=== PATIENT | male | born 1990 | race Caucasian/White ===

== ENCOUNTER 2019-07-14 21:11 | Inpatient (IN) | payer SELFPAY ==
[2019-07-14] MEDS ORDERED: NORMAL SALINE 1000 ML 1,000 ML IV ONE (22:41)
--- NOTE | 2019-07-14 22:43 | ER Document Report ---
ED Medical Screen (RME) - General Stated Complaint: DIABETEC ULCERS ON FEET,POSSIBLE INFECTION Time Seen by Provider: 07/14/19 22:36 Mode of Arrival: Ambulatory Information source: Patient Notes: Patient presents with diabetic foot wounds to bilateral feet. Patient states that he has not been checking his blood sugar although in triage his blood sugar was 376. Patient has been off his insulin for the past month but has been taking metformin. Patient complains of increased foul-smelling drainage to the foot wounds which prompted his visit tonight. [place]. I have greeted and performed a rapid initial assessment of this patient. A comprehensive ED assessment and evaluation of the patient, analysis of test results and completion of the medical decision making process will be conducted by additional ED providers. - Related Data Allergies/Adverse Reactions: banana Allergy (Verified 07/14/19 22:31) latex Allergy (Verified 07/14/19 22:31) nickel Allergy (Verified 07/14/19 22:31) oritavancin [From Orbactiv] Allergy (Verified 07/14/19 22:31) tomato Allergy (Verified 07/14/19 22:31) Physical Exam - Vital signs Vitals: Temp Pulse Resp BP Pulse Ox 97.7 F 79 20 143/82 H 100 07/14/19 21:34 07/14/19 21:34 07/14/19 21:34 07/14/19 21:34 07/14/19 21:34 - General General appearance: Alert Notes: Patient with diabetic foot wounds to bilateral feet. Patient with previous toe amputations to the right foot. Course - Vital Signs Vital signs: Temp Pulse Resp BP Pulse Ox 97.7 F 79 20 143/82 H 100 07/14/19 21:34 07/14/19 21:34 07/14/19 21:34 07/14/19 21:34 07/14/19 21:34
--- NOTE | 2019-07-14 23:32 | RADIOLOGY REPORT (SQ) ---
EXAM DESCRIPTION: XR FOOT 3 OR MORE VIEWS BILATERAL COMPLETED DATE/TME: 07/14/2019 22:42 CLINICAL HISTORY: 28 years, Male, diabetic foot wounds COMPARISON: None. NUMBER OF VIEWS: Six TECHNIQUE: Frontal, oblique, and lateral radiographs of both feet were obtained LIMITATIONS: None. FINDINGS: Right foot: Visualized are postsurgical changes of amputation of the first, second, and third digits at the level of the metatarsal neck/head. Remaining visualized osseous structures appear normal without acute fracture or dislocation. There is some degree of ill definition about the residua of the third metatarsal head/neck on the oblique radiograph. Left foot: Visualized is focal soft tissue swelling about the fifth digit with associated underlying gas density, especially about the plantar surface, presumably corresponding to a focal soft tissue ulcer. Otherwise, visualized osseous structures appear normal in configuration without acute fracture or dislocation. No periostitis or cortical disruption of bone. IMPRESSION: Right foot: 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 Questionable cortical resorption of bone about the residua of the third metatarsal neck/head, raising the possibility of osteomyelitis. Consider confirmation with three-phase bone scan or MR. Left foot: Focal soft tissue ulceration about the plantar surface of the forefoot at the level of the fifth proximal phalangeal head. No compelling evidence of osteomyelitis. However, if there is continued concern, consider three-phase bone scan or MR. copyright 2011 [employer]- All Rights Reserved
[2019-07-14 23:43] LABS: ABSOLUTE EOSINOPHILS # (AUTO) 0.2 10^3/uL (0.0-0.6); BASOPHILS % (AUTO) 0.5 % (0-2); HEMOGLOBIN 12.4 g/dL (13.5-17.0); TOTAL CELLS COUNTED % (AUTO) 100 %
[2019-07-14 23:49] LABS: ABSOLUTE BASOPHILS # (AUTO) 0.1 10^3/uL (0.0-0.2); ABSOLUTE LYMPHOCYTES (AUTO) 2.6 10^3/uL (0.5-4.7); ABSOLUTE MONOCYTES (AUTO) 0.7 10^3/uL (0.1-1.4); ABSOLUTE NEUT (AUTO) 6.2 10^3/uL (1.7-8.2); EOSINOPHILS % (AUTO) 1.9 % (0-6); LYMPHOCYTES % (AUTO) 26.8 % (13-45); MEAN CORPUSCULAR HEMOGLOBIN 29.5 pg (27.0-33.4); MEAN CORPUSCULAR HGB CONC 34.5 g/dL (32.0-36.0); MEAN CORPUSCULAR VOLUME 86 fl (80-97); MONOCYTES % (AUTO) 7.1 % (3-13); PLATELET COUNT 313 10^3/uL (150-450); RED BLOOD COUNT 4.21 10^6/uL (4.35-5.55); RED CELL DISTRIBUTION WIDTH 12.9 % (11.5-14.0); SEGMENTED NEUTROPHILS % (AUTO) 63.7 % (42-78); WHITE BLOOD COUNT 9.7 10^3/uL (4.0-10.5)
[2019-07-15 00:01] LABS: ALBUMIN 4.3 g/dL (3.5-5.0); ALKALINE PHOSPHATASE 86 U/L (38-126); ANION GAP 13 (5-19); ASPARTATE AMINO TRANSFERASE 18 U/L (17-59); BILIRUBIN,DIRECT 0.3 mg/dL (0.0-0.4); BILIRUBIN,TOTAL 0.3 mg/dL (0.2-1.3); BLOOD UREA NITROGEN 22 mg/dL (7-20); CALCIUM 9.8 mg/dL (8.4-10.2); CARBON DIOXIDE 27 mmol/L (22-30); CHLORIDE 99 mmol/L (98-107); GLUCOSE 337 mg/dL (75-110); POTASSIUM 3.6 mmol/L (3.6-5.0); TOTAL PROTEIN 7.7 g/dL (6.3-8.2)
[2019-07-15] MEDS ORDERED: NORMAL SALINE 1000 ML 1,000 ML IV ONE (02:13)
--- NOTE | 2019-07-15 02:15 | ER Document Report ---
ED General <SANDY GONZALEZ - Last Filed: 07/15/19 06:12> - General Mode of Arrival: Ambulatory TRAVEL OUTSIDE OF THE [place] IN LAST 30 DAYS: No - Related Data Home Medications: Lisinopril. Gabapentin. Humalog. Levemir. Metformin <CHRISTINE COYLE - Last Filed: 07/15/19 06:59> - General Chief Complaint: Wound Infection Stated Complaint: DIABETEC ULCERS ON FEET,POSSIBLE INFECTION Time Seen by Provider: 07/14/19 22:36 Notes: Patient is a 28-year-old male with a history of type 2 diabetes with insulin de pendence that comes emergency department for chief complaint of draining from open sores and ulcers on both of his feet for the past several days. He states he has had open wounds for weeks now. He denies fever, he has neuropathy so he feels little pain, he states the area is starting to look a little bit redder. He is taking his metformin but he is out of his NovoLog and his Levemir which he takes 36 units at night. He states he is new to the area and does not have an established primary care here yet. He denies any other complaints. (CHRISTINE COYLE) - Related Data Allergies/Adverse Reactions: banana Allergy (Verified 07/14/19 22:31) latex Allergy (Verified 07/14/19 22:31) nickel Allergy (Verified 07/14/19 22:31) oritavancin [From Orbactiv] Allergy (Verified 07/14/19 22:31) tomato Allergy (Verified 07/14/19 22:31) Past Medical History - General Information source: Patient - Social History Smoking Status: Never Smoker Frequency of alcohol use: None Drug Abuse: None Lives with: Family Family History: Reviewed & Not Pertinent Patient has suicidal ideation: No Patient has homicidal ideation: No - Past Medical History Cardiac Medical History: Reports: Hx Hypertension Endocrine Medical History: Reports: Hx Diabetes Mellitus Type 2 Past Surgical History: Reports: Hx Orthopedic Surgery - Excision of 3 toes on the right foot <CHRISTINE COYLE - Last Filed: 07/15/19 06:59> Review of Systems - Review of Systems Constitutional: No symptoms reported EENT: No symptoms reported Cardiovascular: No symptoms reported Respiratory: No symptoms reported Gastrointestinal: No symptoms reported Genitourinary: No symptoms reported Male Genitourinary: No symptoms reported Musculoskeletal: See HPI Skin: See HPI Hematologic/Lymphatic: No symptoms reported Neurological/Psychological: No symptoms reported <CHRISTINE COYLE - Last Filed: 07/15/19 06:59> Physical Exam <CHRISTINE COYLE - Last Filed: 07/15/19 06:59> - Vital signs Vitals: Temp Pulse Resp BP Pulse Ox 97.7 F 79 20 143/82 H 100 07/14/19 21:34 07/14/19 21:34 07/14/19 21:34 07/14/19 21:34 07/14/19 21:34 - Notes Notes: GENERAL: Alert, interacts well. No acute distress. HEAD: Normocephalic, atraumatic. EYES: Pupils equal, round, and reactive to light. Extraocular movements intact. ENT: Oral mucosa moist, tongue midline. Oropharynx unremarkable. Airway patent. NECK: Full range of motion. Supple. Trachea midline. LUNGS: Clear to auscultation bilaterally, no wheezes, rales, or rhonchi. No respiratory distress. HEART: Regular rate and rhythm. No murmur ABDOMEN: Soft, non-tender. Non-distended. EXTREMITIES: There are 2 open ulcers with some yellowish drainage over the plantar aspect of the left foot underneath the distal MTP areas. Sensation very decreased in both feet. No overt erythema of the left foot but there is some developing erythema of the right. There are old scars over the top of the right foot, great toe, second toe, third toe missing, wide area of skin loss over the top and plantar area of the right foot as well. Unremarkable lower extremities otherwise. BACK: no cervical, thoracic, lumbar midline tenderness. No saddle anesthesia, normal distal neurovascular exam. Moves all extremities in full range of motion. NEUROLOGICAL: Alert and oriented x3. Normal speech. Cranial nerves II through XII grossly intact. PSYCH: Normal affect, normal mood. SKIN: Warm, dry, normal turgor. No rashes or lesions noted. (CHRISTINE COYLE) Course - Laboratory Result Diagrams: 07/14/19 23:15 07/14/19 23:15 <SANDY GONZALEZ - Last Filed: 07/15/19 06:12> - Laboratory Result Diagrams: 07/14/19 23:15 07/14/19 23:15 <CHRISTINE COYLE - Last Filed: 07/15/19 06:59> - Re-evaluation Re-evalutation: 07/15/19 06:12 The patient was seen and evaluated by me with the midlevel provider. The patient has diabetic wounds on both his feet but the wounds on his left foot probe down rather far. Xrays are concerning for Osteo. Plan for IV antibiotics and admission with surgical consult. (SANDY GONZALEZ) Patient with some developing erythema over the right foot where he is already had 3 toes excised. There is also wide area of tissue loss. Left foot with 2 draining ulcers of the plantar aspect of the foot. No fever, no leukocytosis. Patient is hyperglycemic but not acidotic. Treating with IV fluids and insulin. X-rays were obtained and shows possible osteomyelitis of the right foot. Starting on Zosyn. Discussed with Dr. Gonzalez who will evaluate the patient at bedside. He recommends admission to the hospitalist. Patient states full agreement with this plan. Discussed with Dr. Perea, hospitalist, he accepts patient to medical floor, requests I speak with general surgery. 07/15/19 04:[address] Singletary, general surgery, he requests patient be kept n.p.o. and states he will see the patient. (CHRISTINE COYLE) - Vital Signs Vital signs: Temp Pulse Resp BP Pulse Ox 97.8 F 76 16 132/76 H 100 07/15/19 01:54 07/15/19 01:54 07/15/19 01:54 07/15/19 01:54 07/15/19 01:54 - Laboratory Laboratory results interpreted by me: 07/14/19 07/14/19 07/14/19 22:40 23:15 23:15 RBC 4.21 L Hgb 12.4 L Hct 36.0 L ESR BUN 22 H Glucose 337 H POC Glucose 376 H Hemoglobin A1c % C-Reactive Protein 07/14/19 07/14/19 07/15/19 23:15 23:15 02:29 RBC Hgb Hct ESR BUN Glucose POC Glucose 311 H Hemoglobin A1c % 9.8 H C-Reactive Protein 32.8 H 07/15/19 07/15/19 04:04 04:22 RBC Hgb Hct ESR 56 H BUN Glucose POC Glucose 266 H Hemoglobin A1c % C-Reactive Protein Discharge <SANDY GONZALEZ - Last Filed: 07/15/19 06:12> - Discharge Admitting Provider: Eliazar (Hospitalist) Unit Admitted: Medical Floor <CHRISTINE COYLE - Last Filed: 07/15/19 06:59> - Discharge Clinical Impression: Diabetic foot ulcer Qualifiers: Diabetic foot ulcer location: unspecified part of foot Diabetes mellitus type: type 2 Laterality: unspecified laterality Non-pressure ulcer stage: unspecified non-pressure ulcer stage Qualified Code(s): E11.621 - Type 2 diabetes mellitus with foot ulcer Osteomyelitis Qualifiers: Osteomyelitis type: unspecified type Osteomyelitis location: foot Laterality: right Qualified Code(s): M86.9 - Osteomyelitis, unspecified Uncontrolled diabetes mellitus Qualifiers: Diabetes mellitus type: type 2 Glycemic state: with hyperglycemia Qualified Code(s): E11.65 - Type 2 diabetes mellitus with hyperglycemia Condition: Stable Disposition: ADMITTED INPATIENT
[2019-07-15] MEDS ORDERED: INSULIN REG, HUMAN 100 UNIT/ML 3 ML VIAL (PYX) SUBCUT ONE (02:46)
[2019-07-15] MEDS ORDERED: PIPERACILLIN/TAZOBACTAM 4.5 GM VIAL IV ONE (04:17)
[2019-07-15] MEDS ORDERED: GLUCAGON,HUMAN RECOMB 1 MG INJ IM PRN ×2 (04:19→16:30)
[2019-07-15] MEDS ORDERED: IPRATROPIUM/ALBUTEROL 0.5-2.5 MG/3 ML AMPUL NEB PRN (04:19)
[2019-07-15] MEDS ORDERED: DEXTROSE 40% GEL 15 GM TUBE PO PRN ×3 (04:19→16:30)
[2019-07-15] MEDS ORDERED: ACETAMINOPHEN 325 MG TABLET PO PRN (04:19)
[2019-07-15] MEDS ORDERED: MAGNESIUM HYDROXIDE SUSP 30 ML UDCUP PO PRN (04:19)
[2019-07-15] MEDS ORDERED: DEXTROSE 50%-WATER 25 GM/50 ML DISP.SYRIN IV PRN ×2 (04:19)
[2019-07-15] MEDS ORDERED: MAG HYDROX/AL HYDROX/SIMETH SUSP 30 ML UDCUP PO PRN (04:19)
[2019-07-15] MEDS ORDERED: KETOROLAC TROMETHAMINE INJ/PF 30 MG/1 ML SDV IV PRN (04:25)
[2019-07-15] MEDS ORDERED: VANCOMYCIN HCL 0 MG in DEXTROSE 5%-WATER 250 ML IV NR (04:30)
[2019-07-15] MEDS ORDERED: NORMAL SALINE 1000 ML 1,000 ML IV PRN (04:30)
[2019-07-15] MEDS ORDERED: INSULIN GLARGINE,HUM.REC.ANLOG 1,000 UNIT/10 ML VIAL SUBCUT ONE (05:00)
[2019-07-15] MEDS ORDERED: VANCOMYCIN HCL INJ 1000 MG VIAL IV PRN (05:17)
[2019-07-15] MEDS ORDERED: VANCOMYCIN HCL 2,000 MG in DEXTROSE 5%-WATER 500 ML IV ONE (05:30)
[2019-07-15] MEDS: INSULIN LISPRO 100 UNIT/ML 3 ML VIAL SUBCUT SCH ×3 (05:34→21:54)
--- NOTE | 2019-07-15 05:38 | PDOC CONSULTATION ---
Consultation Consult Date: 07/15/19 Provider Consulted: TEX AVILA Consult reason:: Diabetic foot ulcers History of Present Illness Admission Date/PCP: 07/15/19 04:53 History of Present Illness: CONI WAGGONER is a 28 year old male with type 2 diabetes insulin-dependent complaining of foul-smelling drainage from the left foot ulcers in the past week. He denies any fever but claims has occasional chills. He had amputation of the right big toe about 2 years ago in [place] followed by amputation of the right second and third toes about a year ago. He claims that he was in the [facility] about 6[facility] to heal the amputation on the right first toe. He developed callus with ulceration on the left plantar area opposite the first metatarsal head about 3 months ago and started draining and worst in the past week with foul-smelling discharge. The left fifth metatarsal head ulcer started about a month ago and also started to drain recently. He has decreased sensation to both feet due to diabetic neuropathy. Past Medical History Endocrine Medical History: Reports: Diabetes Mellitus Type 2 Past Surgical History Past Surgical History: Reports: Orthopedic Surgery - Amputation of the right first second and third toes. Social History Smoking Status: Never Smoker Frequency of Alcohol Use: Rare - Advance Directive Resuscitation Status: Full Code Family History Parental Family History Reviewed: Yes - Mother has diabetes Children Family History Reviewed: No Sibling(s) Family History Reviewed.: No Medication/Allergy Allergies/Adverse Reactions: banana Allergy (Verified 07/14/19 22:31) latex Allergy (Verified 07/14/19 22:31) nickel Allergy (Verified 07/14/19 22:31) oritavancin [From Orbactiv] Allergy (Verified 07/14/19 22:31) tomato Allergy (Verified 07/14/19 22:31) Review of Systems Constitutional: PRESENT: as per HPI Gastrointestinal: PRESENT: diarrhea - Occasional and usually at night, nausea - Occasional Musculoskeletal: PRESENT: other - Occasional phantom pains on the right toes Decreased sensation in both feet Integumentary: PRESENT: wounds - To plantar arch ulcers on the left foot Neurological: PRESENT: paresthesias - Both feet due to diabetes Physical Exam Vital Signs: Temp Pulse Resp BP Pulse Ox 97.8 F 76 16 132/76 H 100 07/15/19 01:54 07/15/19 01:54 07/15/19 01:54 07/15/19 01:54 07/15/19 01:54 Intake & Output 07/13/19 07/14/19 07/15/19 06:59 06:59 06:59 Intake Total 1000 Balance 1000 Weight 98.2 kg General appearance: PRESENT: no acute distress Head exam: PRESENT: atraumatic Mouth exam: PRESENT: moist Neck exam: PRESENT: full ROM Respiratory exam: PRESENT: clear to auscultation jonathan Cardiovascular exam: PRESENT: RRR Pulses: PRESENT: normal radial pulses, normal dorsalis pedis pul - Palpable on the right ankle. Palpable but diminished on the left. Unable to palpate bilateral posterior tibial arteries likely due to mild edema and mild discomfort Vascular exam: PRESENT: normal capillary refill GI/Abdominal exam: PRESENT: soft Rectal exam: PRESENT: deferred Extremities exam: PRESENT: other - Right first second and third toes amputated. There is superficial ulceration along the right big toe amputation stump. There is mild erythema along the right for second toe amputation site. There is mild tenderness along the right Achilles tendon area going up into the mid calf. There is callus with ulceration along the left first metatarsal head area. No gross drainage at this time the patient claimed this is been draining more in the past few days with foul-smelling. There is a smaller callus with ulceration along the left fifth toe metatarsal bone area. No gross tenderness along both feet due to patient's diabetic neuropathy Musculoskeletal exam: PRESENT: ambulatory Neurological exam: PRESENT: alert, oriented to person, oriented to place, oriented to time, oriented to situation Psychiatric exam: PRESENT: appropriate affect Skin exam: PRESENT: normal color, warm Results Laboratory Results: 07/14/19 23:15 07/14/19 23:15 07/14/19 07/14/19 07/14/19 23:15 23:15 23:15 WBC 9.7 RBC 4.21 L Hgb 12.4 L Hct 36.0 L MCV 86 MCH 29.5 MCHC 34.5 RDW 12.9 Plt Count 313 Seg Neutrophils % 63.7 Sodium 139.2 Potassium 3.6 Chloride 99 Carbon Dioxide 27 Anion Gap 13 BUN 22 H Creatinine 1.04 Est GFR ( Amer) > 60 Glucose 337 H Calcium 9.8 Total Bilirubin 0.3 AST 18 Alkaline Phosphatase 86 C-Reactive Protein 32.8 H Total Protein 7.7 Albumin 4.3 Impressions: Foot X-Ray 07/14/19 22:42 IMPRESSION: Right foot: 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 Questionable cortical resorption of bone about the residua of the third metatarsal neck/head, raising the possibility of osteomyelitis. Consider confirmation with three-phase bone scan or MR. Left foot: Focal soft tissue ulceration about the plantar surface of the forefoot at the level of the fifth proximal phalangeal head. No compelling evidence of osteomyelitis. However, if there is continued concern, consider three-phase bone scan or MR. copyright 2011 [employer]- All Rights Reserved Assessment & Plan - Diagnosis (1) Cellulitis of both feet Is this a current diagnosis for this admission?: Yes (2) Diabetic ulcer of left foot Is this a current diagnosis for this admission?: Yes (3) Uncontrolled diabetes mellitus Qualifiers: Diabetes mellitus type: type 2 Glycemic state: with hyperglycemia Qualified Code(s): E11.65 - Type 2 diabetes mellitus with hyperglycemia Is this a current diagnosis for this admission?: Yes - Time Time Spent: 30 to 50 Minutes - Inpatient Certification Medical Necessity: Need for IV Antibiotics, Risk of Complication if Not Cared For in Hospital - Plan Summary Plan Summary: 28-year-old male with insulin-dependent diabetes post amputation right first second and third toes, now with ulceration along the left first and fifth metatarsal head areas with foul-smelling drainage, comes to the ED because of increasing drainage from the left foot. He claims he ran out of [facility] about a month ago but still has been taking metformin. His initial blood sugar was 367. X-rays of the right foot showed possible osteomyelitis of the right third metatarsal head and possible osteo-of the left fifth metatarsal head and MRI of both feet was recommended by the radiologist. Patient denies any fever but claims is occasional chills. Impression is cellulitis of both feet with possible osteomyelitis of the right third metatarsal head and the left fifth metatarsal head areas. Recommendations: 1 start IV antibiotics 2 MRI of both feet 3 we will follow patient with medicine
--- NOTE | 2019-07-15 06:41 | PDOC H&P ---
History of Present Illness Admission Date/PCP: 07/15/19 04:53 Patient complains of: Right foot ulcer with discharge History of Present Illness: CONI WAGGONER is a 28 year old male with a past medical history of hypertension, diabetes, foot ulcer, digits 1 2 and 3 amputations with osteomyelitis of the right foot. He presents with malodorous discharge without pain and two more large plantar surface ulcers about the metatarsal heads of the left foot. He denies fever chills nausea or vomiting. He admits to dietary, lifestyle and medication indiscretion. He is referred to the hospitalist for admission. Past Medical History Endocrine Medical History: Reports: Diabetes Mellitus Type 1, Diabetes Mellitus Type 2 Musculoskeltal Medical History: Reports: Other - Right foot osteomyelitis Past Surgical History Past Surgical History: Reports: Orthopedic Surgery - Amputation of the right first second and third toes. Social History Information Source: Patient Lives with: Alone Smoking Status: Never Smoker Frequency of Alcohol Use: Rare Drugs: None - Advance Directive Resuscitation Status: Full Code Family History Family History: Hypertension Parental Family History Reviewed: Yes Children Family History Reviewed: Yes Sibling(s) Family History Reviewed.: Yes Medication/Allergy Allergies/Adverse Reactions: banana Allergy (Verified 07/14/19 22:31) latex Allergy (Verified 07/14/19 22:31) nickel Allergy (Verified 07/14/19 22:31) oritavancin [From Orbactiv] Allergy (Verified 07/14/19 22:31) tomato Allergy (Verified 07/14/19 22:31) Review of Systems Constitutional: PRESENT: as per HPI, fatigue, weight loss Integumentary: PRESENT: as per HPI, lesions, wounds Endocrine: PRESENT: polydipsia, polyuria Physical Exam Vital Signs: Temp Pulse Resp BP Pulse Ox 97.8 F 76 16 132/76 H 100 07/15/19 01:54 07/15/19 01:54 07/15/19 01:54 07/15/19 01:54 07/15/19 01:54 Intake & Output 07/13/19 07/14/19 07/15/19 11:59 11:59 11:59 Intake Total 1000 Balance 1000 Weight 98.2 kg General appearance: PRESENT: cooperative, disheveled, mild distress, well- developed, well-nourished Head exam: PRESENT: atraumatic, normocephalic Eye exam: PRESENT: conjunctiva pink, EOMI, PERRLA. ABSENT: scleral icterus Ear exam: PRESENT: normal external ear exam Mouth exam: PRESENT: moist, tongue midline Neck exam: ABSENT: carotid bruit, JVD, lymphadenopathy, thyromegaly Respiratory exam: PRESENT: clear to auscultation jonathan. ABSENT: rales, rhonchi, wheezes Cardiovascular exam: PRESENT: RRR. ABSENT: diastolic murmur, rubs, systolic murmur Pulses: PRESENT: normal dorsalis pedis pul Vascular exam: PRESENT: normal capillary refill GI/Abdominal exam: PRESENT: normal bowel sounds, soft. ABSENT: distended, guarding, mass, organolmegaly, rebound, tenderness Rectal exam: PRESENT: deferred Extremities exam: PRESENT: joint swelling, +1 edema Skin exam: PRESENT: erythema, other - Right distal foot erythema amputation site ulcer with necrotic discharge. Left foot 1 x 1 cm ulcers to the metatarsal heads digit 1 and 3. ABSENT: intact Results Laboratory Results: 07/14/19 23:15 07/14/19 23:15 07/14/19 07/14/19 07/14/19 23:15 23:15 23:15 WBC 9.7 RBC 4.21 L Hgb 12.4 L Hct 36.0 L MCV 86 MCH 29.5 MCHC 34.5 RDW 12.9 Plt Count 313 Seg Neutrophils % 63.7 Sodium 139.2 Potassium 3.6 Chloride 99 Carbon Dioxide 27 Anion Gap 13 BUN 22 H Creatinine 1.04 Est GFR ( Amer) > 60 Glucose 337 H Calcium 9.8 Total Bilirubin 0.3 AST 18 Alkaline Phosphatase 86 C-Reactive Protein 32.8 H Total Protein 7.7 Albumin 4.3 Impressions: Foot X-Ray 07/14/19 22:42 IMPRESSION: Right foot: 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 Questionable cortical resorption of bone about the residua of the third metatarsal neck/head, raising the possibility of osteomyelitis. Consider confirmation with three-phase bone scan or MR. Left foot: Focal soft tissue ulceration about the plantar surface of the forefoot at the level of the fifth proximal phalangeal head. No compelling evidence of osteomyelitis. However, if there is continued concern, consider three-phase bone scan or MR. copyright 2011 [employer]- All Rights Reserved Assessment and Plan - Diagnosis (1) Cellulitis of both feet Is this a current diagnosis for this admission?: Yes Plan: Zosyn and vancomycin, follow-up CBC, wound and blood culture (2) Diabetic foot ulcer Qualifiers: Diabetic foot ulcer location: unspecified part of foot Diabetes mellitus type: type 2 Laterality: unspecified laterality Non-pressure ulcer stage: unspecified non-pressure ulcer stage Qualified Code(s): E11.621 - Type 2 diabetes mellitus with foot ulcer; L97.509 - Non-pressure chronic ulcer of other part of unspecified foot with unspecified severity Is this a current diagnosis for this admission?: Yes Plan: Follow-up MRI and surgical consult (3) Osteomyelitis Qualifiers: Osteomyelitis type: unspecified type Osteomyelitis location: foot Laterality: right Qualified Code(s): M86.9 - Osteomyelitis, unspecified Is this a current diagnosis for this admission?: Yes Plan: Vancomycin, Zosyn, follow-up MRI and surgical consult (4) Uncontrolled diabetes mellitus Qualifiers: Diabetes mellitus type: type 2 Glycemic state: with hyperglycemia Qualified Code(s): E11.65 - Type 2 diabetes mellitus with hyperglycemia Is this a current diagnosis for this admission?: Yes Plan: Unclear requirement, Lantus 5 nightly and Humalog sliding scale q. before meals. Follow-up A1c and Accu-Cheks - Time Time Spent with patient: 25-34 minutes - Inpatient Certification Medical Necessity: Need Close Monitoring Due to Risk of Patient Decompensation
[2019-07-15 07:16] LABS: URINE AMPHETAMINES SCREEN NEGATIVE; URINE BARBITURATES SCREEN NEGATIVE; URINE BENZODIAZEPINES SCREEN NEGATIVE; URINE COCAINE SCREEN NEGATIVE; URINE MARIJUANA (THC) SCREEN NEGATIVE; URINE METHADONE SCREEN NEGATIVE; URINE PHENCYCLIDINE SCREEN NEGATIVE
[2019-07-15] MEDS: HEPARIN SOD (PORCINE) 5,000 UNIT/ML 1 ML VIAL SUBCUT SCH ×3 (11:35→21:40)
--- NOTE | 2019-07-15 12:45 | RADIOLOGY REPORT (SQ) ---
EXAM DESCRIPTION: MRI RT LOWER EXTREMITY COMBO COMPLETED DATE/TIME: 07/15/2019 10:46 am REASON FOR STUDY: RIGHT AND LEFT diabetic foot c osteo COMPARISON: Bilateral foot films 07/14/2019 TECHNIQUE: Multiplanar imaging of the right foot to include T1-weighted, postcontrast T1-weighted, a nd T2-weighted images. CONTRAST TYPE AND DOSE: 20 mL Prohance. RENAL FUNCTION: Not indicated. ACR Type II contrast agent associated with few, if any, unconfounded cases of NSF LIMITATIONS: None. FINDINGS: Patient is post amputation of the 1st through 3rd toes at the metatarsophalangeal joint re gion. Although there is bony remodeling along the distal right 1st 2nd and 3rd metatarsals with periosteal new bone formation, there is no abnormal contrast enhancement or marrow signal worrisome for osteomye litis. There is an enhancing 10 mm diameter plantar fibroma on coronal image 8 and sagittal image 9. Along the flexor digitorum profunda tendon 3rd toe, a 1 cm enhancing neuroma is present on coronal im age 1220. There is minimal soft tissue edema along the plantar aspect of the 1st metatarsal head without contra st enhancement worrisome for infection. No abscess. IMPRESSION: NO EVIDENCE FOR OSTEOMYELITIS. TECHNICAL DOCUMENTATION: JOB ID: [id number] [employer]- All Rights Reserved Reading location - IP/workstation name: [email or web address]
--- NOTE | 2019-07-15 12:50 | RADIOLOGY REPORT (SQ) ---
EXAM DESCRIPTION: MRI LT LOWER EXTREMITY COMBO COMPLETED DATE/TIME: 07/15/2019 10:46 am REASON FOR STUDY: LEFT DIABETIC FOOT COSTEO COMPARISON: Bilateral foot films 07/14/2019 TECHNIQUE: Multiplanar imaging of the left foot to include T1-weighted, postcontrast T1-weighted, an d T2-weighted images. CONTRAST TYPE AND DOSE: 20 mL Prohance. RENAL FUNCTION: Not indicated. ACR Type II contrast agent associated with few, if any, unconfounded cases of NSF LIMITATIONS: None. FINDINGS: BONE MARROW: No marrow signal alteration. Specifically no marrow replacement or marrow ed riley. No evidence for osteomyelitis. No cortical break through. SOFT TISSUES: There is diffuse forefoot subcutaneous and deep tissue edema and enhancement from cellu litis. Enhancement of the interosseous muscles is present from myositis. Small joint effusion at th e 1st metatarsophalangeal joint. OTHER: No other significant finding. IMPRESSION: NO EVIDENCE FOR OSTEOMYELITIS. Diffuse forefoot cellulitis TECHNICAL DOCUMENTATION: JOB ID: [id number] [employer]- All Rights Reserved Reading location - IP/workstation name: [email or web address]
--- NOTE | 2019-07-15 13:05 | PDOC PROGRESS REPORT ---
Subjective Progress Note for:: 07/15/19 Subjective:: Patient still in the emergency department, remains n.p.o. Had MRI scan of legs; no radiologic report available Reason For Visit: DM FOOT C OSTEO Physical Exam Vital Signs: Temp Pulse Resp BP Pulse Ox 97.7 F 76 8 L 133/90 H 97 07/15/19 08:09 07/15/19 01:54 07/15/19 12:01 07/15/19 12:00 07/15/19 12:01 Intake & Output 07/14/19 07/15/19 07/16/19 06:59 06:59 06:59 Intake Total 1000 Balance 1000 Weight 98.2 kg General appearance: PRESENT: no acute distress Musculoskeletal exam: PRESENT: other - Right foot examined. Toes 1 2 and 3 surgically absent. Scar appreciated dorsum of the foot running vertically. There is eschar approximately 3 x 4 cm over the plantar surface over the previous mutation closure site. There is some purulent drainage expressed through the eschar. There is surrounding erythema and tenderness. Left foot examined. There are classic mal perforans ulcers left first and left fifth metatarsal head area with erythema, tenderness, overlying bulla. Results Laboratory Results: 07/14/19 23:15 07/14/19 23:15 07/14/19 07/14/19 07/14/19 23:15 23:15 23:15 WBC 9.7 RBC 4.21 L Hgb 12.4 L Hct 36.0 L MCV 86 MCH 29.5 MCHC 34.5 RDW 12.9 Plt Count 313 Seg Neutrophils % 63.7 Sodium 139.2 Potassium 3.6 Chloride 99 Carbon Dioxide 27 Anion Gap 13 BUN 22 H Creatinine 1.04 Est GFR ( Amer) > 60 Glucose 337 H Calcium 9.8 Total Bilirubin 0.3 AST 18 Alkaline Phosphatase 86 C-Reactive Protein 32.8 H Total Protein 7.7 Albumin 4.3 Impressions: Foot X-Ray 07/14/19 22:42 IMPRESSION: Right foot: 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 Questionable cortical resorption of bone about the residua of the third metatarsal neck/head, raising the possibility of osteomyelitis. Consider confirmation with three-phase bone scan or MR. Left foot: Focal soft tissue ulceration about the plantar surface of the forefoot at the level of the fifth proximal phalangeal head. No compelling evidence of osteomyelitis. However, if there is continued concern, consider three-phase bone scan or MR. copyright 2011 [employer]- All Rights Reserved Lower Extremity MRI 07/15/19 00:00 IMPRESSION: NO EVIDENCE FOR OSTEOMYELITIS. Diffuse forefoot cellulitis Assessment & Plan - Diagnosis (1) Diabetic foot ulcer Qualifiers: Diabetic foot ulcer location: other Diabetes mellitus type: type 2 Laterality: unspecified laterality Non-pressure ulcer stage: unspecified non- pressure ulcer stage Qualified Code(s): E11.621 - Type 2 diabetes mellitus with foot ulcer; L97.509 - Non-pressure chronic ulcer of other part of unspecified foot with unspecified severity Is this a current diagnosis for this admission?: Yes Plan: Impression: 28-year-old diabetic male, status post right first second and third ray amputations in [place] last year, now with pressure ulceration, eschar in pus at the operative closure site; new left foot mal perforans ulcers with purulent discharge first and fifth metatarsal head areas. Also noted inability to palpate dorsalis pedis and posterior tibial pulses consistent with peripheral vascular disease. Recommendations: 1. Debride both feet in the operating room under LMAC, today, 30 minutes, main OR; patient remains n.p.o. Will obtain intraoperative wound cultures and alter antimicrobial coverage accordingly. 2. Patient will need vascular evaluation, starting with an arterial duplex study. - Time Time Spent with patient: 15-24 minutes Medications reviewed and adjusted accordingly: Yes Anticipated discharge: Home
[2019-07-15] MEDS: PIPERACILLIN SODIUM/TAZOBACTAM 4.5 GM in NORMAL SALINE 100 ML IV SCH ×2 (13:08→19:03)
[2019-07-15] MEDS ORDERED: BUPIVACAINE HCL 0.25 % INJ/PF (2.5 MG/1 ML) 30 ML VIAL ONE (13:10)
[2019-07-15] MEDS ORDERED: LIDOCAINE 0.5% INJ-PF (5 MG/ML) 50 ML SDV ONE (13:11)
[2019-07-15] MEDS ORDERED: FENTANYL CITRATE INJ/PF 100 MCG/2 ML AMPUL ONE (13:33)
[2019-07-15] MEDS ORDERED: KETAMINE HCL INJ 500 MG/10 ML VIAL ONE (13:33)
[2019-07-15] MEDS ORDERED: MIDAZOLAM 2 MG/2 ML INJ ONE (13:34)
[2019-07-15] MEDS ORDERED: PROPOFOL INJ 200 MG/20 ML VIAL IV ONE (13:34)
[2019-07-15] MEDS ORDERED: MEPERIDINE HCL/PF INJ 25 MG/1 ML DISP.SYRIN IV PRN (14:05)
[2019-07-15] MEDS ORDERED: FENTANYL CITRATE INJ/PF 100 MCG/2 ML AMPUL IV PRN ×3 (14:05)
[2019-07-15] MEDS ORDERED: MORPHINE SULFATE 10 MG/ML INJ IV PRN (14:05)
[2019-07-15] MEDS ORDERED: DIPHENHYDRAMINE HCL 50 MG/ML VIAL IV PRN (14:05)
[2019-07-15] MEDS ORDERED: PROMETHAZINE HCL INJ 25 MG/1 ML VIAL IV PRN (14:05)
--- NOTE | 2019-07-15 14:49 | Operative Report ---
Operative Report DATE OF SURGERY: 07/15/19 PREOPERATIVE DIAGNOSIS: 1. Type 2 diabetes mellitus with diabetic neuropathy. 2. Post right first second and third toe amputations. 3. Right foot plantar surface soft tissue eschar and cellulitis. 4. Diabetic foot ulcers of the left first and fifth metatarsal head area (mal perforans) POSTOPERATIVE DIAGNOSIS: Same with no evidence of tendon or bone involvement OPERATION: 1. Excisional debridement of right foot plantar surface eschar, swab for culture and sensitivity. 2. Excisional debridement of skin and subcutaneous tissue and fascia of the left foot, first and fifth metatarsal head ulcers. 3. Excisional debridement of 5 toenails SURGEON: MILAN WHITFIELD ANESTHESIA: LMAC TISSUE REMOVED OR ALTERED: Nonviable skin, subcutaneous tissue and fascia COMPLICATIONS: None ESTIMATED BLOOD LOSS: 30 cc INTRAOPERATIVE FINDINGS: See below PROCEDURE: Patient was taken the main operating room where LMAC anesthesia was induced. Both feet were exposed, prepped and draped sterile fashion. Surgical plan surgical timeout were conducted. The right foot was examined first. The findings were significant for an eschar approximately 3 x 4-1/2 cm on the plantar surface of the right foot at the site of the previous right first through 3 toe amputations. The skin and subcutaneous tissue was anesthetized with 1% plain lidocaine. Scar was debrided which included skin and hyperkeratotic tissue. The underlying deep soft tissue had no obvious evidence of pus, drainage or foul smell. There was a piece of Prolene suture which was removed. Wound culture obtained. No further debridement required. Foot was washed, then dressed with Xeroform and 4 x 4's and Kerlix. The left foot was examined. Findings were significant for classic mal perforans ulcers of the first and fifth metatarsal heads. These areas were anesthetized 1% plain lidocaine. The first metatarsal head was excised all the way down to the deep fascia. The plug of skin and subcutaneous tissue was sent to pathology. Wound cultures obtained for Gram stain, C&S. Curette was used to remove all elements of the nonviable tissue. There was no tracking into the joint. The hole created was approximately 2 cm x 2 cm in diameter by 2 cm in depth. It was irrigated with saline, bleeders cauterized which were brisk. The identical procedure was performed over the left fifth metatarsal head. Hyperkeratotic skin, eschar subcutaneous tissue all excised with a #10 blade to create a hole approximately 1-1/2 cm x 1 1/2 cm x 1 1/2 cm in diameter. There was no tracking into the joint. Wound was irrigated with 1/2 L of saline, bleeders cauterized and wound packed with Xeroform, gauze 4 x 4 then foot wrapped with Kerlix Clinical impression: Neglected, diabetic foot ulcers involving right forefoot at previous amputation site, and left first and fifth metatarsal heads. No clinical or MRI evidence of osteomyelitis. Recommendations: 1. Leg elevation, dressing changes, follow-up on cultures and alter antibiotic pending sensitivities. 2. Doubt patient will require additional operative debridement 3. Patient will need very close follow-up with advanced wound center, and podiatry. 4. The above discussed with patient's family; of note patient's mother has had diabetes for 35 years.
[2019-07-15] MEDS: VANCOMYCIN HCL 1,250 MG in DEXTROSE 5%-WATER 250 ML IV SCH ×2 (16:03→21:53)
[2019-07-15] MEDS ORDERED: INFLUENZA QUAD (6MOS+) 2019-20 VAC 0.5 ML SYR IM ONE (16:12)
[2019-07-15] MEDS ORDERED: DEXTROSE 40% GEL 15 GM TUBE X 2 PO PRN (16:30)
[2019-07-15] MEDS ORDERED: DEXTROSE 50%-WATER SYRINGE 12.5 GM/25 ML DOSE IV PRN (16:30)
[2019-07-15] MEDS ORDERED: DEXTROSE 50%-WATER SYRINGE 25 GM/50 ML DOSE IV PRN (16:30)
[2019-07-15] MEDS ORDERED: INSULIN LISPRO 100 UNIT/ML 3 ML VIAL SUBCUT ONE (17:00)
--- NOTE | 2019-07-15 17:30 | PDOC PROGRESS REPORT ---
Subjective Progress Note for:: 07/15/19 Subjective:: The patient is a 24-year-old male with a past medical history of hypertension, diabetes, foot ulcers, and multiple toe amputations of the right foot who was admitted 07/15/2019 with bilateral diabetic foot wounds. Patient was seen on afternoon rounds. He is found resting in bed comfortably on supplemental oxygen by nasal cannula. He is not home O2 dependent. He is just returned to the room from the OR where he underwent surgical debridement of bilateral feet. He reports that he is feeling well at this time; just drowsy. He denies fever, chills, chest pain, palpitations, dyspnea, orthopnea, abdominal pain, nausea vomiting and diarrhea. No pain to feet at this time. He has no other questions or concerns. No concerns per nursing. Reason For Visit: DM FOOT C OSTEO Physical Exam Vital Signs: Temp Pulse Resp BP Pulse Ox 97.9 F 71 16 132/85 H 99 07/15/19 16:45 07/15/19 16:45 07/15/19 16:45 07/15/19 16:45 07/15/19 16:45 Intake & Output 07/14/19 07/15/19 07/16/19 06:59 06:59 06:59 Intake Total 1000 1000 Output Total 5 Balance 1000 995 Weight 98.2 kg 100.7 kg General appearance: PRESENT: no acute distress, disheveled, well-developed, well-nourished Head exam: PRESENT: atraumatic, normocephalic Eye exam: PRESENT: conjunctiva pink, EOMI, PERRLA. ABSENT: scleral icterus Ear exam: PRESENT: normal external ear exam Mouth exam: PRESENT: moist, tongue midline Neck exam: ABSENT: carotid bruit, JVD, lymphadenopathy, thyromegaly Respiratory exam: PRESENT: clear to auscultation jonathan, symmetrical, unlabored. ABSENT: rales, rhonchi, wheezes Cardiovascular exam: PRESENT: RRR, +S1, +S2. ABSENT: diastolic murmur, rubs, systolic murmur Pulses: PRESENT: normal dorsalis pedis pul Vascular exam: PRESENT: normal capillary refill GI/Abdominal exam: PRESENT: normal bowel sounds, soft. ABSENT: distended, guarding, mass, organolmegaly, rebound, tenderness Rectal exam: PRESENT: deferred Extremities exam: PRESENT: full ROM. ABSENT: calf tenderness, clubbing, pedal edema Neurological exam: PRESENT: alert, awake, oriented to person, oriented to place, oriented to time, oriented to situation, CN II-XII grossly intact. ABSENT: motor sensory deficit Psychiatric exam: PRESENT: appropriate affect, normal mood. ABSENT: homicidal ideation, suicidal ideation Skin exam: PRESENT: dry, warm, other - Bilateral feet w/ post-op dressings in place.. ABSENT: cyanosis, intact, rash Results Laboratory Results: 07/14/19 23:15 07/14/19 23:15 07/14/19 07/14/19 07/14/19 23:15 23:15 23:15 WBC 9.7 RBC 4.21 L Hgb 12.4 L Hct 36.0 L MCV 86 MCH 29.5 MCHC 34.5 RDW 12.9 Plt Count 313 Seg Neutrophils % 63.7 Sodium 139.2 Potassium 3.6 Chloride 99 Carbon Dioxide 27 Anion Gap 13 BUN 22 H Creatinine 1.04 Est GFR ( Amer) > 60 Glucose 337 H Calcium 9.8 Total Bilirubin 0.3 AST 18 Alkaline Phosphatase 86 C-Reactive Protein 32.8 H Total Protein 7.7 Albumin 4.3 Impressions: Foot X-Ray 07/14/19 22:42 IMPRESSION: Right foot: 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 Questionable cortical resorption of bone about the residua of the third metatarsal neck/head, raising the possibility of osteomyelitis. Consider confirmation with three-phase bone scan or MR. Left foot: Focal soft tissue ulceration about the plantar surface of the forefoot at the level of the fifth proximal phalangeal head. No compelling evidence of osteomyelitis. However, if there is continued concern, consider three-phase bone scan or MR. copyright 2011 [employer]- All Rights Reserved Lower Extremity MRI 07/15/19 00:00 IMPRESSION: NO EVIDENCE FOR OSTEOMYELITIS. Diffuse forefoot cellulitis Assessment and Plan - Diagnosis (1) Cellulitis of both feet Is this a current diagnosis for this admission?: Yes Plan: MRIs were negative for osteomyelitis. Blood and wound cultures are pending. Sed rate 56, CRP 32 Patient is admitted to the medical floor. Continue empiric Zosyn and vancomycin Surgery is consulted; now status post surgical debridement of both feet. Wound care per surgery's recommendations. Follow-up with the advanced wound care clinic as an outpatient. Analgesics as needed. (2) Diabetic foot ulcer Qualifiers: Diabetic foot ulcer location: other Diabetes mellitus type: type 2 Laterality: unspecified laterality Non-pressure ulcer stage: unspecified non- pressure ulcer stage Qualified Code(s): E11.621 - Type 2 diabetes mellitus with foot ulcer; L97.509 - Non-pressure chronic ulcer of other part of unspecified foot with unspecified severity Is this a current diagnosis for this admission?: Yes Plan: Evaluation and management as above. (3) Uncontrolled diabetes mellitus Qualifiers: Diabetes mellitus type: type 2 Glycemic state: with hyperglycemia Qualified Code(s): E11.65 - Type 2 diabetes mellitus with hyperglycemia Is this a current diagnosis for this admission?: Yes Plan: Hemoglobin A1c 9.8. Patient is placed on a consistent carb diet. Accu-Cheks before meals and at bedtime with Humalog for sliding scale coverage. Lantus 5 units nightly. Hypoglycemia protocol. Registered dietitian and coding educator consulted. (4) Osteomyelitis Qualifiers: Osteomyelitis type: unspecified type Osteomyelitis location: foot Laterality: right Qualified Code(s): M86.9 - Osteomyelitis, unspecified Is this a current diagnosis for this admission?: Yes Plan: Ruled out. MRIs were negative for osteomyelitis. No evidence of tendon or bone involvement noted per Dr. Conroy during surgical debridement - Time Time Spent with patient: 15-24 minutes Medications reviewed and adjusted accordingly: Yes Anticipated discharge: Home with Homehealth
[2019-07-15] MEDS ORDERED: INSULIN GLARGINE,HUM.REC.ANLOG 1,000 UNIT/10 ML VIAL SUBCUT SCH (22:00)
[2019-07-16] MEDS: PIPERACILLIN SODIUM/TAZOBACTAM 4.5 GM in NORMAL SALINE 100 ML IV SCH ×4 (00:23→17:01)
[2019-07-16] MEDS: HEPARIN SOD (PORCINE) 5,000 UNIT/ML 1 ML VIAL SUBCUT SCH ×3 (05:42→21:51)
[2019-07-16] MEDS: VANCOMYCIN HCL 1,250 MG in DEXTROSE 5%-WATER 250 ML IV SCH ×3 (05:49→21:56)
[2019-07-16 06:10] LABS: ABSOLUTE EOSINOPHILS # (AUTO) 0.2 10^3/uL (0.0-0.6); ABSOLUTE LYMPHOCYTES (AUTO) 1.8 10^3/uL (0.5-4.7); ABSOLUTE MONOCYTES (AUTO) 0.7 10^3/uL (0.1-1.4); ABSOLUTE NEUT (AUTO) 4.6 10^3/uL (1.7-8.2); BASOPHILS % (AUTO) 0.6 % (0-2); HEMATOCRIT 32.8 % (37.9-51.0); HEMOGLOBIN 11.7 g/dL (13.5-17.0); LYMPHOCYTES % (AUTO) 24.6 % (13-45); MEAN CORPUSCULAR HGB CONC 35.5 g/dL (32.0-36.0); MEAN CORPUSCULAR VOLUME 84 fl (80-97); MONOCYTES % (AUTO) 9.5 % (3-13); PLATELET COUNT 252 10^3/uL (150-450); RED BLOOD COUNT 3.89 10^6/uL (4.35-5.55); SEGMENTED NEUTROPHILS % (AUTO) 62.3 % (42-78); TOTAL CELLS COUNTED % (AUTO) 100 %; WHITE BLOOD COUNT 7.3 10^3/uL (4.0-10.5)
[2019-07-16] MEDS: INSULIN LISPRO 100 UNIT/ML 3 ML VIAL SUBCUT SCH ×4 (08:12→21:55)
[2019-07-16] MEDS ORDERED: NICOTINE 14 MG/24 HR PATCH.TD24 TD SCH (10:00)
--- NOTE | 2019-07-16 11:39 | PDOC PROGRESS REPORT ---
Subjective Progress Note for:: 07/16/19 Subjective:: Denies any pains though has diabetic neuropathy of both feet Reason For Visit: DM FOOT C OSTEO Physical Exam Vital Signs: Temp Pulse Resp BP Pulse Ox 97.9 F 74 18 130/85 H 100 07/16/19 00:00 07/16/19 00:00 07/16/19 00:00 07/16/19 00:00 07/15/19 21:00 Intake & Output 07/15/19 07/16/19 07/17/19 06:59 06:59 06:59 Intake Total 1000 3260 250 Output Total 1355 Balance 1000 1905 250 Weight 98.2 kg 101.3 kg Exam: Dressings removed and operative sites on the right foot and on the left foot appear to be relatively clean and dry. Results Laboratory Results: 07/16/19 05:42 07/14/19 23:15 07/16/19 05:42 WBC 7.3 RBC 3.89 L Hgb 11.7 L Hct 32.8 L MCV 84 MCH 30.0 MCHC 35.5 RDW 13.0 Plt Count 252 Seg Neutrophils % 62.3 07/15/19 05:36 Blood Blood Culture (PCR) - Final Staphylococcus Species Impressions: Foot X-Ray 07/14/19 22:42 IMPRESSION: Right foot: 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 Questionable cortical resorption of bone about the residua of the third metatarsal neck/head, raising the possibility of osteomyelitis. Consider confirmation with three-phase bone scan or MR. Left foot: Focal soft tissue ulceration about the plantar surface of the forefoot at the level of the fifth proximal phalangeal head. No compelling evidence of osteomyelitis. However, if there is continued concern, consider three-phase bone scan or MR. copyright 2011 [employer]- All Rights Reserved Lower Extremity MRI 07/15/19 00:00 IMPRESSION: NO EVIDENCE FOR OSTEOMYELITIS. Diffuse forefoot cellulitis Assessment & Plan - Diagnosis (1) Cellulitis of both feet Is this a current diagnosis for this admission?: Yes (2) Diabetic ulcer of left foot Is this a current diagnosis for this admission?: Yes (3) Uncontrolled diabetes mellitus Qualifiers: Diabetes mellitus type: type 2 Glycemic state: with hyperglycemia Qualified Code(s): E11.65 - Type 2 diabetes mellitus with hyperglycemia Is this a current diagnosis for this admission?: Yes - Time Time Spent with patient: 15-24 minutes - Inpatient Certification Medical Necessity: Need for IV Antibiotics, Risk of Complication if Not Cared For in Hospital - Plan Summary Plan Summary: Plans: We will started wet-to-dry dressings to both feet I&D sites every 12 hours. Continue IV antibiotics Will eventually need follow-up at the wound care clinic.
[2019-07-16 14:17] LABS: VANCOMYCIN,TROUGH 16.6 ug/mL (5.0-20.0)
--- NOTE | 2019-07-16 15:52 | PDOC PROGRESS REPORT ---
Subjective Progress Note for:: 07/16/19 Subjective:: The patient is a 24-year-old male with a past medical history of hypertension, diabetes, foot ulcers, and multiple toe amputations of the right foot who was admitted 07/15/2019 with bilateral diabetic foot wounds. Patient was seen on morning rounds. He is found resting in bed, comfortably, on room air. He reports that he is feeling well at this time; denies pain. Interested in meeting with the registered dietitian, staff educator, and planner intern. Patient reports that he has just moved here from [place] to live with his parents (although discharge planning reports that she is spoken with the patient's mother and he cannot live with them; therefore he is homeless). He denies fever, chills, chest pain, palpitations, dyspnea, orthopnea, abdominal pain, nausea vomiting and diarrhea. He has no questions or concerns at this time. Nursing reports this afternoon that the patient began discussing lines to leave AGAINST MEDICAL ADVICE. Reason For Visit: DM FOOT C OSTEO Physical Exam Vital Signs: Temp Pulse Resp BP Pulse Ox 97.9 F 80 14 134/89 H 98 07/16/19 12:31 07/16/19 12:55 07/16/19 12:55 07/16/19 12:31 07/16/19 12:55 Intake & Output 07/15/19 07/16/19 07/17/19 06:59 06:59 06:59 Intake Total 1000 3260 350 Output Total 1355 Balance 1000 1905 350 Weight 98.2 kg 101.3 kg General appearance: PRESENT: no acute distress, cooperative, obese, well- developed, well-nourished Head exam: PRESENT: atraumatic, normocephalic Eye exam: PRESENT: conjunctiva pink, EOMI, PERRLA. ABSENT: scleral icterus Ear exam: PRESENT: normal external ear exam Mouth exam: PRESENT: moist, tongue midline Respiratory exam: PRESENT: clear to auscultation jonathan, symmetrical, unlabored. ABSENT: rales, rhonchi, wheezes Cardiovascular exam: PRESENT: RRR, +S1, +S2. ABSENT: diastolic murmur, rubs, systolic murmur Pulses: PRESENT: normal dorsalis pedis pul Vascular exam: PRESENT: normal capillary refill GI/Abdominal exam: PRESENT: normal bowel sounds, soft. ABSENT: distended, gu arding, mass, organolmegaly, rebound, tenderness Rectal exam: PRESENT: deferred Extremities exam: PRESENT: full ROM. ABSENT: calf tenderness, clubbing, pedal edema Neurological exam: PRESENT: alert, awake, oriented to person, oriented to place, oriented to time, oriented to situation, CN II-XII grossly intact. ABSENT: mot or sensory deficit Psychiatric exam: PRESENT: appropriate affect, normal mood. ABSENT: homicidal ideation, suicidal ideation Skin exam: PRESENT: dry, warm, other - Right distal foot erythema has resolved. No erythema to left. Left foot 1 x 1 cm ulcers to the metatarsal heads digit 1 and 3;. ABSENT: cyanosis, rash Results Laboratory Results: 07/16/19 05:42 07/14/19 23:15 07/16/19 05:42 WBC 7.3 RBC 3.89 L Hgb 11.7 L Hct 32.8 L MCV 84 MCH 30.0 MCHC 35.5 RDW 13.0 Plt Count 252 Seg Neutrophils % 62.3 07/15/19 05:36 Blood Blood Culture (PCR) - Final Staphylococcus Species Impressions: Foot X-Ray 07/14/19 22:42 IMPRESSION: Right foot: 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 Questionable cortical resorption of bone about the residua of the third metatarsal neck/head, raising the possibility of osteomyelitis. Consider confirmation with three-phase bone scan or MR. Left foot: Focal soft tissue ulceration about the plantar surface of the forefoot at the level of the fifth proximal phalangeal head. No compelling evidence of osteomyelitis. However, if there is continued concern, consider three-phase bone scan or MR. copyright 2011 [employer]- All Rights Reserved Lower Extremity MRI 07/15/19 00:00 IMPRESSION: NO EVIDENCE FOR OSTEOMYELITIS. Diffuse forefoot cellulitis Assessment and Plan - Diagnosis (1) Cellulitis of both feet Is this a current diagnosis for this admission?: Yes Plan: Improved; WBCs are normal, patient afebrile, erythema and edema have resolved. MRIs were negative for osteomyelitis. Wound cultures show gram-positive cocci in clusters and gram-negative rods. Blood culture has gram-positive cocci in clusters in 1 of 4 bottles. Repeat blood cultures pending Sed rate 56, CRP 32 Patient is admitted to the medical floor. Continue empiric Zosyn and vancomycin Surgery is consulted; now status post surgical debridement of both feet. Wound care per surgery's recommendations. Follow-up with the advanced wound care clinic as an outpatient. Analgesics as needed. (2) Diabetic foot ulcer Qualifiers: Diabetic foot ulcer location: other Diabetes mellitus type: type 2 Laterality: unspecified laterality Non-pressure ulcer stage: unspecified non- pressure ulcer stage Qualified Code(s): E11.621 - Type 2 diabetes mellitus with foot ulcer; L97.509 - Non-pressure chronic ulcer of other part of unspe cified foot with unspecified severity Is this a current diagnosis for this admission?: Yes Plan: Evaluation and management as above. (3) Uncontrolled diabetes mellitus Qualifiers: Diabetes mellitus type: type 2 Glycemic state: with hyperglycemia Qualified Code(s): E11.65 - Type 2 diabetes mellitus with hyperglycemia Is this a current diagnosis for this admission?: Yes Plan: Hemoglobin A1c 9.8. Patient is placed on a consistent carb diet. Accu-Cheks before meals and at bedtime with Humalog for sliding scale coverage. Lantus 6 units nightly. Hypoglycemia protocol. Registered dietitian and staff educator consulted. (4) Osteomyelitis Qualifiers: Osteomyelitis type: unspecified type Osteomyelitis location: foot Laterality: right Qualified Code(s): M86.9 - Osteomyelitis, unspecified Is this a current diagnosis for this admission?: Yes Plan: Ruled out. MRIs were negative for osteomyelitis. No evidence of tendon or bone involvement noted per Dr. Conroy during surgical debridement (5) Hypertension Is this a current diagnosis for this admission?: Yes Plan: Start lisinopril 5 mg daily. (6) Bacteremia Is this a current diagnosis for this admission?: Yes Plan: Wound cultures show gram-positive cocci in clusters and gram-negative rods. Blood culture has gram-positive cocci in clusters in 1 of 4 bottles. Repeat blood cultures pending Continue IV vancomycin and Zosyn. - Time Time Spent with patient: 25-34 minutes Medications reviewed and adjusted accordingly: Yes Anticipated discharge: Home
--- NOTE | 2019-07-16 16:42 | XCELERA REPORT ---
[address] [address] Lower Extremity Arterial Evaluation Name: CONI WAGGONER Age: 28 yrs Gender: Male : 1990 Patient Status: Inpatient Patient Location: [address] [place] [address] Study Date: 07/16/2019 10:01 AM Procedure: A color flow and duplex scan of the lower extremity arteries was performed bilaterally with velocity and waveform anaylsis. Reason For Study: History of perpheral vascular disease Ordering Physician: MILAN WHITFIELD Performed By: Jaqueline Guy Measurements and Calculations Right Left MELTING FURNACE SKIMMER PSV 80.5 91.0 cm/sec Prox PFA PSV -59.8 -73.8 cm/sec Prox Pop A PSV 81.5 64.4 cm/sec Dist Pop A PSV -85.9 -95.3 cm/sec Prox TAIWO PSV 76.6 67.6 cm/sec Dist TAIWO PSV 61.9 60.9 cm/sec Dist PUBLIC ADDRESS SERVICER PSV 120.7 152.2 cm/sec Prox Louis A 76.1 cm/sec PSV Mid Louis A PSV -48.3 cm/sec Jim Pedis PSV -52.3 -95.3 cm/sec Right Side Arterial Evaluation Normal velocity and triphasic waveforms noted from the Common Femoral artery to the infrageniculate vessels . Ankle Brachial index not done. Left Side Arterial Evaluation Normal velocity and triphasic waveforms noted from the Common Femoral artery to the infrageniculate vessels . Normal velocity and biphasic waveforms noted in the Posterior tibial and Dorsalis Pedis arteries. Ankle Brachial index not done. Interpretation Summary No hemodynamically significant lesions in the right lower extremity only, on duplex imaging, at rest. Mild hemodynamically significant lesions in the left lower extremity only, on duplex imaging, at rest. : MILAN WHITFIELD > Todd Brown
[2019-07-16] MEDS: LISINOPRIL 5 MG TABLET PO SCH (16:53)
[2019-07-16] MEDS: INSULIN GLARGINE,HUM.REC.ANLOG 1,000 UNIT/10 ML VIAL SUBCUT SCH (21:56)
[2019-07-17] MEDS: PIPERACILLIN SODIUM/TAZOBACTAM 4.5 GM in NORMAL SALINE 100 ML IV SCH ×4 (00:55→18:05)
[2019-07-17] MEDS: HEPARIN SOD (PORCINE) 5,000 UNIT/ML 1 ML VIAL SUBCUT SCH ×3 (05:50→21:44)
[2019-07-17] MEDS: VANCOMYCIN HCL 1,250 MG in DEXTROSE 5%-WATER 250 ML IV SCH ×3 (05:58→21:50)
[2019-07-17 07:31] LABS: HEMATOCRIT 33.8 % (37.9-51.0); HEMOGLOBIN 11.8 g/dL (13.5-17.0); MEAN CORPUSCULAR HEMOGLOBIN 29.4 pg (27.0-33.4); MEAN CORPUSCULAR VOLUME 84 fl (80-97); PLATELET COUNT 281 10^3/uL (150-450); RED BLOOD COUNT 4.02 10^6/uL (4.35-5.55); RED CELL DISTRIBUTION WIDTH 12.9 % (11.5-14.0); WHITE BLOOD COUNT 7.7 10^3/uL (4.0-10.5)
[2019-07-17 07:51] LABS: ANION GAP 8 (5-19); BLOOD UREA NITROGEN 8 mg/dL (7-20); CARBON DIOXIDE 30 mmol/L (22-30); CHLORIDE 102 mmol/L (98-107); GLUCOSE 212 mg/dL (75-110); POTASSIUM 3.7 mmol/L (3.6-5.0)
[2019-07-17] MEDS: INSULIN LISPRO 100 UNIT/ML 3 ML VIAL SUBCUT SCH ×4 (08:46→21:51)
[2019-07-17] MEDS: LISINOPRIL 5 MG TABLET PO SCH (10:56)
--- NOTE | 2019-07-17 15:11 | PDOC PROGRESS REPORT ---
Subjective Progress Note for:: 07/17/19 Subjective:: no pains Reason For Visit: DM FOOT C OSTEO Physical Exam Vital Signs: Temp Pulse Resp BP Pulse Ox 97.9 F 70 16 117/84 97 07/17/19 04:10 07/17/19 12:59 07/17/19 12:59 07/17/19 04:10 07/17/19 12:59 Intake & Output 07/16/19 07/17/19 07/18/19 06:59 06:59 06:59 Intake Total 3260 1870 250 Output Total 1355 1401 Balance 1905 469 250 Weight 101.3 kg Exam: Wounds in both both feet appear to be getting better with much less inflammation. All lesions in both feet are dry. 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 Questionable cortical resorption of bone about the residua of the third metatarsal neck/head, raising the possibility of osteomyelitis. Consider confirmation with three-phase bone scan or MR. Left foot: Focal soft tissue ulceration about the plantar surface of the forefoot at the level of the fifth proximal phalangeal head. No compelling evidence of osteomyelitis. However, if there is continued concern, consider three-phase bone scan or MR. copyright 2011 [employer]- All Rights Reserved Lower Extremity MRI 07/15/19 00:00 IMPRESSION: NO EVIDENCE FOR OSTEOMYELITIS. Diffuse forefoot cellulitis Assessment & Plan - Diagnosis (1) Cellulitis of both feet Is this a current diagnosis for this admission?: Yes (2) Diabetic ulcer of left foot Is this a current diagnosis for this admission?: Yes (3) Uncontrolled diabetes mellitus Qualifiers: Diabetes mellitus type: type 2 Glycemic state: with hyperglycemia Qualif ied Code(s): E11.65 - Type 2 diabetes mellitus with hyperglycemia Is this a current diagnosis for this admission?: Yes - Time Time Spent with patient: 15-24 minutes - Inpatient Certification Medical Necessity: Need for IV Antibiotics - Plan Summary Plan Summary: Cellulitis in both feet are getting better. The operative sites look clean and dry. Recommendations 1 continue with the wet-to-dry dressings at home on a daily basis. 2. Continue antibiotics for the next 5 days. 3. Follow-up at the wound care center. 4.. We will sign off and call for any questions
--- NOTE | 2019-07-17 15:24 | PDOC PROGRESS REPORT ---
Subjective Progress Note for:: 07/17/19 Reason For Visit: DM FOOT C OSTEO 07/17/2019 Bilateral foot ulcers, diabetes Physical Exam Vital Signs: Temp Pulse Resp BP Pulse Ox 97.9 F 70 16 117/84 97 07/17/19 04:10 07/17/19 12:59 07/17/19 12:59 07/17/19 04:10 07/17/19 12:59 Intake & Output 07/16/19 07/17/19 07/18/19 06:59 06:59 06:59 Intake Total 3260 1870 250 Output Total 1355 1401 Balance 1905 469 250 Weight 101.3 kg General appearance: PRESENT: no acute distress, other - Sitting up in bed talking in no distress Respiratory exam: PRESENT: clear to auscultation jonathan. ABSENT: rales, rhonchi, wheezes Cardiovascular exam: PRESENT: RRR. ABSENT: diastolic murmur, rubs, systolic murmur Neurological exam: PRESENT: alert, awake, oriented to person, oriented to place, oriented to time, oriented to situation, CN II-XII grossly intact. ABSENT: motor sensory deficit Psychiatric exam: PRESENT: appropriate affect, normal mood. 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 Questionable cortical resorption of bone about the residua of the third metatarsal neck/head, raising the possibility of osteomyelitis. Consider confirmation with three-phase bone scan or MR. Left foot: Focal soft tissue ulceration about the plantar surface of the forefoot at the level of the fifth proximal phalangeal head. No compelling evidence of osteomyelitis. However, if there is continued concern, consider three-phase bone scan or MR. copyright 2011 [employer]- All Rights Reserved Lower Extremity MRI 07/15/19 00:00 IMPRESSION: NO EVIDENCE FOR OSTEOMYELITIS. Diffuse forefoot cellulitis Assessment and Plan - Diagnosis (1) Bacteremia Is this a current diagnosis for this admission?: Yes (2) Cellulitis of both feet Is this a current diagnosis for this admission?: Yes (3) Diabetic foot ulcer Qualifiers: Diabetic foot ulcer location: other Diabetes mellitus type: type 2 Laterality: unspecified laterality Non-pressure ulcer stage: unspecified non- pressure ulcer stage Qualified Code(s): E11.621 - Type 2 diabetes mellitus with foot ulcer; L97.509 - Non-pressure chronic ulcer of other part of unspecified foot with unspecified severity Is this a current diagnosis for this admission?: Yes (4) Uncontrolled diabetes mellitus Qualifiers: Diabetes mellitus type: type 2 Glycemic state: with hyperglycemia Qualified Code(s): E11.65 - Type 2 diabetes mellitus with hyperglycemia Is this a current diagnosis for this admission?: Yes - Plan Summary Summary: 07/17/2019 Temp 97 9, pulse 67 blood pressure 117/84, O2 sat 99% on room air Repeat blood cultures were drawn today and are pending. Previous blood cultures 1 out of 4 was positive Wound culture is positive So far no evidence of osteomyelitis Patient currently on Zosyn and vancomycin Surgery has signed off and states that patient will need to continue antibiotics for 5 more days follow-up at wound care center Patient will probably end up going to stay with his parents when he is discharged. Anticipate patient staying in the hospital through Tuesday, pending blood cultures - Time Time Spent with patient: 25-34 minutes
[2019-07-17] MEDS: INSULIN GLARGINE,HUM.REC.ANLOG 1,000 UNIT/10 ML VIAL SUBCUT SCH (21:50)
[2019-07-18] MEDS: PIPERACILLIN SODIUM/TAZOBACTAM 4.5 GM in NORMAL SALINE 100 ML IV SCH ×3 (00:51→13:01)
[2019-07-18] MEDS: HEPARIN SOD (PORCINE) 5,000 UNIT/ML 1 ML VIAL SUBCUT SCH ×3 (05:30→22:41)
[2019-07-18] MEDS: VANCOMYCIN HCL 1,250 MG in DEXTROSE 5%-WATER 250 ML IV SCH (05:31)
[2019-07-18] MEDS: INSULIN LISPRO 100 UNIT/ML 3 ML VIAL SUBCUT SCH ×4 (07:40→23:19)
[2019-07-18] MEDS: LISINOPRIL 5 MG TABLET PO SCH (09:02)
--- NOTE | 2019-07-18 12:16 | PDOC PROGRESS REPORT ---
Subjective Progress Note for:: 07/18/19 Reason For Visit: DM FOOT C OSTEO 07/18/2019 Bilateral foot ulcer secondary to diabetes Physical Exam Vital Signs: Temp Pulse Resp BP Pulse Ox 97.5 F 70 17 118/70 100 07/18/19 08:10 07/18/19 08:10 07/18/19 08:10 07/18/19 08:10 07/18/19 08:10 Intake & Output 07/17/19 07/18/19 07/19/19 06:59 06:59 06:59 Intake Total 1870 1250 250 Output Total 1401 1302 Balance 469 -52 250 Weight 105 kg General appearance: PRESENT: no acute distress Respiratory exam: PRESENT: accessory muscle use Cardiovascular exam: PRESENT: RRR. ABSENT: diastolic murmur, rubs, systolic murmur Extremities exam: PRESENT: other - Wounds appear to be clean and dry Neurological exam: PRESENT: alert, awake, oriented to person, oriented to place, oriented to time, oriented to situation, CN II-XII grossly intact. ABSENT: motor sensory deficit Psychiatric exam: PRESENT: appropriate affect, normal mood. 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 Questionable cortical resorption of bone about the residua of the third metatarsal neck/head, raising the possibility of osteomyelitis. Consider confirmation with three-phase bone scan or MR. Left foot: Focal soft tissue ulceration about the plantar surface of the forefoot at the level of the fifth proximal phalangeal head. No compelling evidence of osteomyelitis. However, if there is continued concern, consider three-phase bone scan or MR. copyright 2011 [employer]- All Rights Reserved Lower Extremity MRI 07/15/19 00:00 IMPRESSION: NO EVIDENCE FOR OSTEOMYELITIS. Diffuse forefoot cellulitis Assessment and Plan - Diagnosis (1) Bacteremia Is this a current diagnosis for this admission?: Yes (2) Cellulitis of both feet Is this a current diagnosis for this admission?: Yes (3) Diabetic foot ulcer Qualifiers: Diabetic foot ulcer location: other Diabetes mellitus type: type 2 Laterality: unspecified laterality Non-pressure ulcer stage: unspecified non- pressure ulcer stage Qualified Code(s): E11.621 - Type 2 diabetes mellitus with foot ulcer; L97.509 - Non-pressure chronic ulcer of other part of unspecified foot with unspecified severity Is this a current diagnosis for this admission?: Yes (4) Uncontrolled diabetes mellitus Qualifiers: Diabetes mellitus type: type 2 Glycemic state: with hyperglycemia Qualified Code(s): E11.65 - Type 2 diabetes mellitus with hyperglycemia Is this a current diagnosis for this admission?: Yes - Plan Summary Summary: 07/17/2019 Temp 97 9, pulse 67 blood pressure 117/84, O2 sat 99% on room air Repeat blood cultures were drawn today and are pending. Previous blood cultures 1 out of 4 was positive Wound culture is positive So far no evidence of osteomyelitis Patient currently on Zosyn and vancomycin Surgery has signed off and states that patient will need to continue antibiotics for 5 more days follow-up at wound care center Patient will probably end up going to stay with his parents when he is discharged. Anticipate patient staying in the hospital through Tuesday, pending blood cultures 07/18/2019 Vital signs are stable Blood cultures showed no growth in 24 hours Patient's glucose levels are still running in the mid 200's. I am going increase Lantus from 6 to 10 units Patient's family is unwilling or unable to take patient at time of discharge. Will notify discharge planning. Anticipate d/c in 2-3 days. - Time Time Spent with patient: 25-34 minutes
[2019-07-18] MEDS: INSULIN GLARGINE,HUM.REC.ANLOG 1,000 UNIT/10 ML VIAL SUBCUT SCH (23:20)
[2019-07-18] MEDS: SULFAMETHOXAZOLE/TRIMETHOPRIM 800-160 MG TABLET PO SCH (23:21)
[2019-07-19] MEDS: HEPARIN SOD (PORCINE) 5,000 UNIT/ML 1 ML VIAL SUBCUT SCH (06:28)
[2019-07-19] MEDS: INSULIN LISPRO 100 UNIT/ML 3 ML VIAL SUBCUT SCH ×2 (07:27→11:49)
[2019-07-19] MEDS: SULFAMETHOXAZOLE/TRIMETHOPRIM 800-160 MG TABLET PO SCH (09:36)
[2019-07-19] MEDS: LISINOPRIL 5 MG TABLET PO SCH (09:36)
--- NOTE | 2019-07-19 09:40 | Progress Note ---
Provider Note Provider Note: 07/19/2019 Surgery has signed off the case and feels that he can be managed as an outpatient. Patient is medically stable for discharge however patient has no place to go when discharged, therefore we are working on a placement issue now. Will discuss patient on rounds on a daily basis Vital signs temperature 97.9, pulse 70, blood pressure 134/76, O2 sat 99% on room air Labs are stable close levels seem to be holding around 200
--- NOTE | 2019-07-19 12:49 | PDOC DISCHARGE SUMMARY ---
Impression - Admit/DC Date/PCP Admission Date/Primary Care Provider: 07/15/19 04:53 Discharge Date: 07/19/19 - Discharge Diagnosis (1) Bacteremia Is this a current diagnosis for this admission?: Yes (2) Cellulitis of both feet Is this a current diagnosis for this admission?: Yes (3) Diabetic foot ulcer Is this a current diagnosis for this admission?: Yes (4) Uncontrolled diabetes mellitus Is this a current diagnosis for this admission?: Yes (5) Noncompliance Is this a current diagnosis for this admission?: Yes - Assessment Summary: 07/17/2019 Temp 97 9, pulse 67 blood pressure 117/84, O2 sat 99% on room air Repeat blood cultures were drawn today and are pending. Previous blood cultures 1 out of 4 was positive Wound culture is positive So far no evidence of osteomyelitis Patient currently on Zosyn and vancomycin Surgery has signed off and states that patient will need to continue antibiotics for 5 more days follow-up at wound care center Patient will probably end up going to stay with his parents when he is discharged. Anticipate patient staying in the hospital through Tuesday, pending blood cultures 07/18/2019 Vital signs are stable Blood cultures showed no growth in 24 hours Patient has multiple organisms growing from his wound. Primarily MRSA, Kleb oxytoca. After discussing with Dr. Umana I am going to switch him to Bactrim DS, 2 tabs BID. Have lost IV access and do not want to do IV abx unless have to. BC reported out 48 hours tomorrow. Patient's glucose levels are still running in the mid 200's. I am going increase Lantus from 6 to 10 units Patient's family is unwilling or unable to take patient at time of discharge. Will notify discharge planning. Anticipate d/c in 2-3 days. 07/19/2019 patient is being discharged home today on Bactrim double strength 2 tablets twice daily x4 days also on lisinopril 10 mg daily and Lantus insulin 10 units nightly Patient will be going to stay with a friend Patient was discharged from surgical care yesterday to follow-up in the wound clinic proximally 1 week Patient was told to continue to do wet-to-dry dressings twice daily at home - Additional Information Resuscitation Status: Full Code Discharge Diet: Diabetic Discharge Activity: Balance Activity w/Rest Referrals: [facility] [Outside] - 07/26/19 4:00 pm Prescriptions: Insulin Glargine,Hum.rec.anlog [Lantus Insulin 100 Unit/1 ml 10 ml] 10 unit SUBCUT QHS 30 Days #30 unit Lisinopril [Prinivil 5 mg Tablet] 5 mg PO DAILY 30 Days #30 tablet Sulfamethoxazole/Trimethoprim [Septra-Ds 800-160 mg Tablet] 2 tab PO Q12 4 Days #16 tablet Home Medications: Acetaminophen [Tylenol 325 mg Tablet] 650 mg PO Q4HP PRN tablet 07/19/19 Insulin Glargine,Hum.rec.anlog [Lantus Insulin 100 Unit/1 ml 10 ml] 10 unit SUBCUT QHS 30 Days #30 unit 07/19/19 Lisinopril [Prinivil 5 mg Tablet] 5 mg PO DAILY 30 Days #30 tablet 07/19/19 Sulfamethoxazole/Trimethoprim [Septra-Ds 800-160 mg Tablet] 2 tab PO Q12 4 Days #16 tablet 07/19/19 History of Present Illiness History of Present Illness: CONI WAGGONER is a 28 year old male Physical Exam Vital Signs: Temp Pulse Resp BP Pulse Ox 97.6 F 65 16 135/85 H 100 07/19/19 12:23 07/19/19 12:23 07/19/19 12:23 07/19/19 12:23 07/19/19 12:23 Intake & Output 07/18/19 07/19/19 07/20/19 06:59 06:59 06:59 Intake Total 1250 1645 Output Total 1302 925 Balance -52 720 Weight 105 kg 97.9 kg Results Laboratory Results: WBC 7.7 10^3/uL (4.0-10.5) 07/17/19 06:27 RBC 4.02 10^6/uL (4.35-5.55) L 07/17/19 06:27 Hgb 11.8 g/dL (13.5-17.0) L 07/17/19 06:27 Hct 33.8 % (37.9-51.0) L 07/17/19 06:27 MCV 84 fl (80-97) 07/17/19 06:27 MCH 29.4 pg (27.0-33.4) 07/17/19 06:27 MCHC 35.0 g/dL (32.0-36.0) 07/17/19 06:27 RDW 12.9 % (11.5-14.0) 07/17/19 06:27 Plt Count 281 10^3/uL (150-450) 07/17/19 06:27 Lymph % (Auto) 24.6 % (13-45) 07/16/19 05:42 [place] % (Auto) 9.5 % (3-13) 07/16/19 05:42 Eos % (Auto) 3.0 % (0-6) 07/16/19 05:42 Baso % (Auto) 0.6 % (0-2) 07/16/19 05:42 Absolute Neuts (auto) 4.6 10^3/uL (1.7-8.2) 07/16/19 05:42 Absolute Lymphs (auto) 1.8 10^3/uL (0.5-4.7) 07/16/19 05:42 Absolute Monos (auto) 0.7 10^3/uL (0.1-1.4) 07/16/19 05:42 Absolute Eos (auto) 0.2 10^3/uL (0.0-0.6) 07/16/19 05:42 Absolute Basos (auto) 0.0 10^3/uL (0.0-0.2) 07/16/19 05:42 Seg Neutrophils % 62.3 % (42-78) 07/16/19 05:42 ESR 56 mm/hr (0-15) H 07/15/19 04:22 Sodium 140.0 mmol/L (137-145) 07/17/19 06:27 Potassium 3.7 mmol/L (3.6-5.0) 07/17/19 06:27 Chloride 102 mmol/L (98-107) 07/17/19 06:27 Carbon Dioxide 30 mmol/L (22-30) 07/17/19 06:27 Anion Gap 8 (5-19) 07/17/19 06:27 BUN 8 mg/dL (7-20) 07/17/19 06:27 Creatinine 0.95 mg/dL (0.52-1.25) 07/17/19 06:27 Est GFR ( Amer) > 60 (>60) 07/17/19 06:27 Est GFR (MDRD) Non-Af > 60 (>60) 07/17/19 06:27 Glucose 212 mg/dL (75-110) H 07/17/19 06:27 POC Glucose 229 mg/dL (70-110) H 07/19/19 11:19 Hemoglobin A1c % 9.8 % (4.7-6.0) H 07/14/19 23:15 Calcium 9.0 mg/dL (8.4-10.2) 07/17/19 06:27 Total Bilirubin 0.3 mg/dL (0.2-1.3) 07/14/19 23:15 Direct Bilirubin 0.3 mg/dL (0.0-0.4) 07/14/19 23:15 Neonat Total Bilirubin Not Reportable 07/14/19 23:15 Neonat Direct Bilirubin Not Reportable 07/14/19 23:15 Neonat Indirect Bili Not Reportable 07/14/19 23:15 AST 18 U/L (17-59) 07/14/19 23:15 ALT 13 U/L (<50) 07/14/19 23:15 Alkaline Phosphatase 86 U/L (38-126) 07/14/19 23:15 C-Reactive Protein 32.8 mg/L (<10.0) H 07/14/19 23:15 Total Protein 7.7 g/dL (6.3-8.2) 07/14/19 23:15 Albumin 4.3 g/dL (3.5-5.0) 07/14/19 23:15 Time Trough Drawn 1350 07/16/19 13:50 Vancomycin Trough 16.6 ug/mL (5.0-20.0) 07/16/19 13:50 Urine Opiates Screen NEGATIVE 07/15/19 05:36 Urine Methadone Screen NEGATIVE 07/15/19 05:36 Ur Barbiturates Screen NEGATIVE 07/15/19 05:36 Ur Phencyclidine Scrn NEGATIVE 07/15/19 05:36 Ur Amphetamines Screen NEGATIVE 07/15/19 05:36 U Benzodiazepines Scrn NEGATIVE 07/15/19 05:36 Urine Cocaine Screen NEGATIVE 07/15/19 05:36 U Marijuana (THC) Screen NEGATIVE 07/15/19 05:36 Impressions: Foot X-Ray 07/14/19 22:42 IMPRESSION: Right foot: 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 Questionable cortical resorption of bone about the residua of the third metatarsal neck/head, raising the possibility of osteomyelitis. Consider confirmation with three-phase bone scan or MR. Left foot: Focal soft tissue ulceration about the plantar surface of the forefoot at the level of the fifth proximal phalangeal head. No compelling evidence of osteomyelitis. However, if there is continued concern, consider three-phase bone scan or MR. copyright 2011 [employer]- All Rights Reserved Lower Extremity MRI 07/15/19 00:00 IMPRESSION: NO EVIDENCE FOR OSTEOMYELITIS. Lower Extremity MRI 07/15/19 00:00 IMPRESSION: NO EVIDENCE FOR OSTEOMYELITIS. Diffuse forefoot cellulitis Stroke Is this a Stroke Patient?: No Acute Heart Failure - Is this a Heart Failure Patient?: No
[2019-07-19 13:07] VITALS: BP 114/83
== END 2019-07-19 13:30 | disposition home or self-care (01) | DRG 623 ==
LOC: ER 21:11 → EH 07-15 04:53 → 4S 07-15 15:30
PROVIDERS: ADMIT Internal Medicine; ATTEND Internal Medicine
PROC: 0HBMXZZ Excision of Right Foot Skin, External Approach (ICD-10-PCS; 2019-07-15)
PROC: 0HBRXZZ Excision of Toe Nail, External Approach (ICD-10-PCS; 2019-07-15)
PROC: 0HBRXZZ Excision of Toe Nail, External Approach (ICD-10-PCS; 2019-07-15)
PROC: 0HBRXZZ Excision of Toe Nail, External Approach (ICD-10-PCS; 2019-07-15)
PROC: 0HBRXZZ Excision of Toe Nail, External Approach (ICD-10-PCS; 2019-07-15)
PROC: 0HBRXZZ Excision of Toe Nail, External Approach (ICD-10-PCS; 2019-07-15)
PROC: 0JBR0ZZ Excision of Left Foot Subcutaneous Tissue and Fascia, Open Approach (ICD-10-PCS; principal; 2019-07-15 14:00)
PROC: 3E0234Z Introduction of Serum, Toxoid and Vaccine into Muscle, Percutaneous Approach (ICD-10-PCS; 2019-07-19)
DX: E11.621 Type 2 diabetes mellitus with foot ulcer (principal); L03.116 Cellulitis of left lower limb; L03.115 Cellulitis of right lower limb; R78.81 Bacteremia; L97.509 Non-pressure chronic ulcer of other part of unspecified foot with unspecified severity; E11.65 Type 2 diabetes mellitus with hyperglycemia; E11.40 Type 2 diabetes mellitus with diabetic neuropathy, unspecified; I10 Essential (primary) hypertension; Z89.411 Acquired absence of right great toe; Z91.19 Patient's noncompliance with other medical treatment and regimen; Z59.0 Homelessness; Z23 Encounter for immunization
CPT/HCPCS: 01470; 36415; 80048; 80053; 80202; 80307; 82962; 83036; 85025; 85027; 85652; 86140; 87040; 87070; 87075; 87077; 87150; 87186; 87205; 90686; 93925; 96360; 99285; A9576; J1815; J1885; J2250; J2543; J2704; J3010; J3370; J3490; J7030; J7050; J7060

== ENCOUNTER 2019-08-03 21:25 | Inpatient (IN) | payer SELFPAY ==
[2019-08-03] MEDS ORDERED: NORMAL SALINE 1000 ML 1,000 ML IV PRN (22:05)
[2019-08-03 22:22] LABS: ABSOLUTE BASOPHILS # (AUTO) 0.1 10^3/uL (0.0-0.2); ABSOLUTE EOSINOPHILS # (AUTO) 0.1 10^3/uL (0.0-0.6); ABSOLUTE LYMPHOCYTES (AUTO) 2.6 10^3/uL (0.5-4.7); ABSOLUTE MONOCYTES (AUTO) 1.4 10^3/uL (0.1-1.4); ABSOLUTE NEUT (AUTO) 11.5 10^3/uL (1.7-8.2); BASOPHILS % (AUTO) 0.5 % (0-2); EOSINOPHILS % (AUTO) 0.8 % (0-6); HEMATOCRIT 37.8 % (37.9-51.0); HEMOGLOBIN 13.1 g/dL (13.5-17.0); LYMPHOCYTES % (AUTO) 16.6 % (13-45); MEAN CORPUSCULAR HEMOGLOBIN 29.1 pg (27.0-33.4); MEAN CORPUSCULAR HGB CONC 34.8 g/dL (32.0-36.0); MEAN CORPUSCULAR VOLUME 84 fl (80-97); MONOCYTES % (AUTO) 8.8 % (3-13); PLATELET COUNT 355 10^3/uL (150-450); RED BLOOD COUNT 4.52 10^6/uL (4.35-5.55); RED CELL DISTRIBUTION WIDTH 12.6 % (11.5-14.0); SEGMENTED NEUTROPHILS % (AUTO) 73.3 % (42-78); TOTAL CELLS COUNTED % (AUTO) 100 %; WHITE BLOOD COUNT 15.7 10^3/uL (4.0-10.5)
[2019-08-03 22:29] LABS: INTERNATIONAL RATION (INR) 0.97; PROTHROMBIN TIME 12.9 SEC (11.4-15.4)
[2019-08-03 22:37] LABS: ALBUMIN 4.5 g/dL (3.5-5.0); ALKALINE PHOSPHATASE 106 U/L (38-126); ANION GAP 12 (5-19); ASPARTATE AMINO TRANSFERASE 16 U/L (17-59); BILIRUBIN,DIRECT 0.3 mg/dL (0.0-0.4); BILIRUBIN,TOTAL 0.6 mg/dL (0.2-1.3); BLOOD UREA NITROGEN 16 mg/dL (7-20); CALCIUM 10.2 mg/dL (8.4-10.2); CARBON DIOXIDE 31 mmol/L (22-30); CHLORIDE 96 mmol/L (98-107); GLUCOSE 218 mg/dL (75-110); POTASSIUM 4.4 mmol/L (3.6-5.0); TOTAL PROTEIN 8.5 g/dL (6.3-8.2)
[2019-08-03 22:55] LABS: VENOUS BLOOD BASE EXCESS 1.6 mmol/L; VENOUS BLOOD HCO3 27.6 mmol/L (20-32); VENOUS BLOOD PCO2 48.7 mmHg (35-63); VENOUS BLOOD PH 7.37 (7.30-7.42)
[2019-08-04] MEDS ORDERED: ONDANSETRON HCL INJ/PF 4 MG/2 ML SDV IV ONE (00:13)
[2019-08-04] MEDS ORDERED: CEFEPIME 2 GM/D5W RTU 2 GM/50 ML RTUPB IV ONE ×2 (00:13→04:00)
[2019-08-04] MEDS ORDERED: MORPHINE SULFATE 10 MG/ML INJ IV ONE (00:13)
[2019-08-04] MEDS ORDERED: VANCOMYCIN HCL INJ 1000 MG VIAL IV ONE (00:13)
--- NOTE | 2019-08-04 00:16 | ER Document Report ---
ED General - General Chief Complaint: Flu Symptoms Stated Complaint: FLU LIKE SYMPTOMS Time Seen by Provider: 08/03/19 23:55 Notes: Patient is a 28-year-old male that comes to the emergency department for chief complaint of left foot pain that has worsened over the past 2 days, he also developed generalized nausea and vomited twice earlier today. He denies current abdominal pain, he states only his left leg hurts starting at the foot. He has had chills but denies fevers. He was recently discharged from [facility] after being admitted for infection to the left foot and had surgical debridement at that time. He was discharged on Bactrim on 07/19/2019, completed the Bactrim 4 days later. He has a history of insulin-dependent Type II diabetes, toe resections on the right foot. TRAVEL OUTSIDE OF THE [place] IN LAST 30 DAYS: No - Related Data Allergies/Adverse Reactions: banana Allergy (Verified 07/14/19 22:31) latex Allergy (Verified 07/14/19 22:31) nickel Allergy (Verified 07/14/19 22:31) oritavancin [From Orbactiv] Allergy (Verified 07/14/19 22:31) tomato Allergy (Verified 07/14/19 22:31) Past Medical History - General Information source: Patient - Social History Smoking Status: Never Smoker Frequency of alcohol use: None Drug Abuse: None Lives with: Family Family History: Reviewed & Not Pertinent Patient has suicidal ideation: No Patient has homicidal ideation: No - Past Medical History Cardiac Medical History: Reports: Hx Hypertension Endocrine Medical History: Reports: Hx Diabetes Mellitus Type 1, Hx Diabetes Mellitus Type 2 Psychiatric Medical History: Denies: Hx Depression Past Surgical History: Reports: Hx Orthopedic Surgery - Excision of 3 toes on the right foot - Immunizations Immunizations up to date: Yes Hx Diphtheria, Pertussis, Tetanus Vaccination: Yes Review of Systems - Review of Systems Constitutional: No symptoms reported EENT: No symptoms reported Cardiovascular: No symptoms reported Respiratory: No symptoms reported Gastrointestinal: No symptoms reported Genitourinary: No symptoms reported Male Genitourinary: No symptoms reported Musculoskeletal: See HPI Skin: See HPI Hematologic/Lymphatic: No symptoms reported Neurological/Psychological: No symptoms reported Physical Exam - Vital signs Vitals: BP 109/83 08/03/19 21:30 - Notes Notes: GENERAL: Alert, interacts well. No acute distress. HEAD: Normocephalic, atraumatic. EYES: Pupils equal, round, and reactive to light. Extraocular movements intact. ENT: Oral mucosa moist, tongue midline. Oropharynx unremarkable. Airway patent. LUNGS: Clear to auscultation bilaterally, no wheezes, rales, or rhonchi. No respiratory distress. HEART: Borderline tachycardia, normal rhythm, no murmur ABDOMEN: Soft, non-tender. Non-distended. EXTREMITIES: Upper extremities unremarkable. Surgical shoes on both feet with bulky dressings. Left foot with 2 ulcers underneath the MCPs on the plantar surface, right ulcer unremarkable, left sprayed purulent material when the dressing was unwrapped, there is heat, tenderness, foul odor from this area. Erythema of the general foot around the ulcers. BACK: no cervical, thoracic, lumbar midline tenderness. No saddle anesthesia, normal distal neurovascular exam. NEUROLOGICAL: Alert and oriented x3. Normal speech. Cranial nerves II through XII grossly intact. PSYCH: Normal affect, normal mood. SKIN: Warm, dry, normal turgor. No rashes or lesions noted. Course - Re-evaluation Re-evalutation: Patient with very concerning appearance of the left lower extremity with pur ulent drainage, foul odor, evidence of cellulitis. Patient has leukocytosis of 15,000 with elevation of neutrophils but no bandemia. He reports chills at home, he was tachycardic on arrival, no fever or tachycardia after initiating treatment. X-ray without concerning change from prior. I called and spoke with Dr. Conroy, he did perform debridement for the patient previously, he recommends that he will consult on the patient, patient can be placed on antibiotics and admitted to the hospitalist service. Patient is very agreeable with this. Discussed with Dr. Hanks, patient accepted to the medical floor full admission. - Vital Signs Vital signs: Temp Pulse Resp BP Pulse Ox 98.1 F 81 17 131/69 H 99 08/04/19 04:10 08/04/19 04:10 08/04/19 04:10 08/04/19 04:10 08/04/19 04:10 - Laboratory Result Diagrams: 08/03/19 21:58 08/03/19 21:58 Laboratory results interpreted by me: 08/03/19 08/03/19 21:58 21:58 WBC 15.7 H Hgb 13.1 L Hct 37.8 L Absolute Neuts (auto) 11.5 H Chloride 96 L Carbon Dioxide 31 H Creatinine 1.37 H Glucose 218 H AST 16 L Total Protein 8.5 H Discharge - Discharge Clinical Impression: Diabetic foot ulcer Qualifiers: Diabetic foot ulcer location: other Diabetes mellitus type: type 2 Laterality: left Non-pressure ulcer stage: with necrosis of muscle Qualified Code(s): E11.621 - Type 2 diabetes mellitus with foot ulcer Leukocytosis Qualifiers: Leukocytosis type: unspecified Qualified Code(s): D72.829 - Elevated white blood cell count, unspecified Condition: Stable Disposition: ADMITTED INPATIENT Admitting Provider: Demario (Hospitalist) Unit Admitted: Medical Floor
--- NOTE | 2019-08-04 01:28 | RADIOLOGY REPORT (SQ) ---
CLINICAL HISTORY: swelling, pain, ? Osteomyelitis COMPARISON: None. TECHNIQUE: XR FOOT 3 OR MORE VIEWS 08/04/2019 12:13 AM [employer] FINDINGS: There is no fracture. Joint spaces are preserved. Soft tissues are unremarkable. There is an ulceration at the plantar surface overlying the fifth digit. There is no associated osteopenia or erosive changes. IMPRESSION: Soft tissue ulcer without definite osteomyelitis.
[2019-08-04] MEDS ORDERED: MAGNESIUM HYDROXIDE SUSP 30 ML UDCUP PO PRN (03:16)
[2019-08-04] MEDS ORDERED: PROMETHAZINE HCL INJ 25 MG/1 ML VIAL IV PRN ×2 (03:16→10:44)
[2019-08-04] MEDS ORDERED: MAG HYDROX/AL HYDROX/SIMETH SUSP 30 ML UDCUP PO PRN (03:16)
[2019-08-04] MEDS ORDERED: MORPHINE SULFATE 10 MG/ML INJ IV PRN ×4 (03:21→10:44)
[2019-08-04] MEDS ORDERED: LORAZEPAM INJ 2 MG/1 ML VIAL IV PRN (03:21)
[2019-08-04] MEDS ORDERED: ACETAMINOPHEN 650 MG SUPP.RECT PR PRN (03:21)
[2019-08-04] MEDS ORDERED: MELATONIN 5 MG TABLET PO PRN (03:21)
[2019-08-04] MEDS ORDERED: DEXTROSE 40% GEL 15 GM TUBE PO PRN ×2 (03:22)
[2019-08-04] MEDS ORDERED: DEXTROSE 50%-WATER 25 GM/50 ML DISP.SYRIN IV PRN ×2 (03:22)
[2019-08-04] MEDS ORDERED: GLUCAGON,HUMAN RECOMB 1 MG INJ IM PRN (03:22)
[2019-08-04] MEDS ORDERED: VANCOMYCIN HCL INJ 1000 MG VIAL IV SCH (03:30)
--- NOTE | 2019-08-04 04:16 | PDOC H&P ---
History of Present Illness Admission Date/PCP: 08/04/19 02:44 No local PCP Patient complains of: Left foot pain History of Present Illness: CONI WAGGONER is a 28 year old male who presented emergency room with a 2-day history of left foot pain. Patient admits gradually worsening pain in his left foot over the last 2 days becoming severe by the time he was seen in the emergency room. His left foot pain is a constant, sharp, nonradiating pain of the sole of the foot worsened by any attempted weightbearing. The pain has been accompanied by subjective chills but no fever. The pain is been associated with several episodes of nausea and vomiting. He was recently discharged from the hospital after surgical debridement of his left foot and finished a course of oral Bactrim. He admits prior similar episodes with previous foot infections. He denies identification of any additional aggravating or ameliorating factors for his left foot pain. In the emergency room he was found to have a white blood count of 15,700 and though he had an initial heart rate of 120 after receiving a liter of IV fluid his heart rate was 96 and the remainder of his vital signs were stable. Patient was subsequently admitted to the hospital for further evaluation and treatment at the request of Dr. Conroy who ordered that the hospitalist service admit the patient and consult him for surgical manageme nt. Past Medical History Cardiac Medical History: Reports: Hypertension Denies: Coronary Artery Disease, Hyperlipidema Pulmonary Medical History: Denies: Asthma, Chronic Obstructive Pulmonary Disease (COPD) EENT Medical History: Denies: Cataracts, Eyes - Diabetic retinal disease Neurological Medical History: Denies: Hemorrhagic CVA, Ischemic CVA, Seizures Endocrine Medical History: Reports: Diabetes Mellitus Type 2 Denies: Hyperthyroidism, Hypothyroidism Renal/ Medical History: Denies: Chronic Kidney Disease, Nephrolithiasis Malignancy Medical History: Reports: None GI Medical History: Denies: Cirrhosis, Crohn's Disease, Gastroesophageal Reflux Disease, Hepatitis, Hiatal Hernia, Peptic Ulcer Disease, Ulcerative Colitis Musculoskeltal Medical History: Denies: Arthritis, Gout Skin Medical History: Denies: Eczema, Psoriasis Psychiatric Medical History: Denies: Alcohol Dependency, Depression, Substance Abuse, Tobacco Dependency Traumatic Medical History: Reports: None Hematology: Denies: Anemia, Bleeding Tendencies Infectious Medical History: Reports: Methicillin-Resistant Staph Aureus Past Surgical History Past Surgical History: Reports: Orthopedic Surgery - Excision of 3 toes on the right foot recent debridement of left foot ulcer Social History Information Source: Patient Lives with: Parents Smoking Status: Never Smoker Electronic Cigarette use?: No Frequency of Alcohol Use: Rare Hx Recreational Drug Use: No Drugs: None Hx Prescription Drug Abuse: No - Advance Directive Resuscitation Status: Full Code Surrogate healthcare decision maker:: Bakari Bo Family History Family History: Hypertension Parental Family History Reviewed: Yes Children Family History Reviewed: No Sibling(s) Family History Reviewed.: Yes Medication/Allergy Home Medications: Acetaminophen [Tylenol 325 mg Tablet] 650 mg PO Q4HP PRN tablet 07/19/19 Insulin Glargine,Hum.rec.anlog [Lantus Insulin 100 Unit/1 ml 10 ml] 10 unit SUBCUT QHS 30 Days #30 unit 07/19/19 Lisinopril [Prinivil 5 mg Tablet] 5 mg PO DAILY 30 Days #30 tablet 07/19/19 Sulfamethoxazole/Trimethoprim [Septra-Ds 800-160 mg Tablet] 2 tab PO Q12 4 Days #16 tablet 07/19/19 Allergies/Adverse Reactions: banana Allergy (Verified 07/14/19 22:31) latex Allergy (Verified 07/14/19 22:31) nickel Allergy (Verified 07/14/19 22:31) oritavancin [From Orbactiv] Allergy (Verified 07/14/19 22:31) tomato Allergy (Verified 07/14/19 22:31) Review of Systems Constitutional: PRESENT: chills. ABSENT: anorexia, fever(s) Eyes: ABSENT: visual disturbances, other - Eye pain Ears: ABSENT: hearing changes, other - Ear pain Nose, Mouth, and Throat: ABSENT: headache(s), mouth pain, sore throat Cardiovascular: ABSENT: chest pain, palpitations Respiratory: ABSENT: cough, dyspnea Gastrointestinal: PRESENT: as per HPI, nausea, vomiting. ABSENT: abdominal pain, constipation, diarrhea Genitourinary: ABSENT: dysuria, hematuria Musculoskeletal: PRESENT: as per HPI, back pain, other - Left foot pain. A BSENT: joint swelling, muscle weakness Integumentary: PRESENT: wounds - Left foot wound recently debrided and treated with antibiotics for MRSA. ABSENT: pruritus, rash Neurological: ABSENT: confusion, convulsions, focal weakness, memory loss, syncope Psychiatric: ABSENT: anxiety, depression Endocrine: ABSENT: cold intolerance, heat intolerance, polydipsia, polyphagia, polyuria Hematologic/Lymphatic: ABSENT: easy bleeding, easy bruising Allergic/Immunologic: ABSENT: seasonal rhinorrhea Physical Exam Vital Signs: Temp Pulse Resp BP Pulse Ox 99.7 F 120 H 19 123/84 98 08/03/19 21:43 08/03/19 21:43 08/04/19 01:01 08/04/19 01:01 08/04/19 01:16 Intake & Output 08/02/19 08/03/19 08/04/19 23:59 23:59 23:59 Intake Total 1050 Balance 1050 Weight 96.9 kg General appearance: PRESENT: no acute distress, cooperative Head exam: PRESENT: atraumatic, normocephalic Eye exam: PRESENT: conjunctiva pink. ABSENT: conjunctival injection, scleral icterus Ear exam: PRESENT: normal external ear exam. ABSENT: bleeding, drainage Mouth exam: PRESENT: dry mucosa, neck supple Neck exam: ABSENT: thyromegaly, tracheal deviation Respiratory exam: PRESENT: clear to auscultation jonathan, symmetrical, unlabored Cardiovascular exam: PRESENT: RRR. ABSENT: clicks, gallop, rubs Pulses: PRESENT: normal radial pulses, normal dorsalis pedis pul Vascular exam: PRESENT: normal capillary refill. ABSENT: pallor GI/Abdominal exam: PRESENT: normal bowel sounds, soft Rectal exam: PRESENT: deferred Extremities exam: ABSENT: joint swelling, pedal edema Musculoskeletal exam: ABSENT: deformity, dislocation Neurological exam: PRESENT: alert, oriented to person, oriented to place, oriented to time, oriented to situation, CN II-XII grossly intact. ABSENT: motor sensory deficit Psychiatric exam: PRESENT: appropriate affect, normal mood Skin exam: PRESENT: dry, warm, other - Wound involving the sole of the left foot at the metatarsal phalangeal joints with purulent drainage dressings are in place.. ABSENT: jaundice, rash, urticaria Results Laboratory Results: 08/03/19 21:58 08/03/19 21:58 08/03/19 08/03/19 08/03/19 21:58 21:58 21:58 WBC 15.7 H RBC 4.52 Hgb 13.1 L Hct 37.8 L MCV 84 MCH 29.1 MCHC 34.8 RDW 12.6 Plt Count 355 Seg Neutrophils % 73.3 VBG pH VBG pCO2 VBG HCO3 VBG Base Excess Sodium 139.2 Potassium 4.4 Chloride 96 L Carbon Dioxide 31 H Anion Gap 12 BUN 16 Creatinine 1.37 H Est GFR ( Amer) > 60 Glucose 218 H Lactic Acid 1.3 Calcium 10.2 Total Bilirubin 0.6 AST 16 L Alkaline Phosphatase 106 Total Protein 8.5 H Albumin 4.5 Lipase 08/03/19 08/03/19 08/04/19 21:58 22:40 01:26 WBC RBC Hgb Hct MCV MCH MCHC RDW Plt Count Seg Neutrophils % VBG pH 7.37 VBG pCO2 48.7 VBG HCO3 27.6 VBG Base Excess 1.6 Sodium Potassium Chloride Carbon Dioxide Anion Gap BUN Creatinine Est GFR ( Amer) Glucose Lactic Acid 1.0 Calcium Total Bilirubin AST Alkaline Phosphatase Total Protein Albumin Lipase 40.8 Impressions: Foot X-Ray 08/04/19 00:13 IMPRESSION: Soft tissue ulcer without definite osteomyelitis. Assessment and Plan - Diagnosis (1) Diabetic ulcer of left foot Qualifiers: Diabetic foot ulcer location: other Diabetes mellitus type: type 2 Non- pressure ulcer stage: unspecified non-pressure ulcer stage Qualified Code(s): E11.621 - Type 2 diabetes mellitus with foot ulcer; L97.529 - Non-pressure chronic ulcer of other part of left foot with unspecified severity Is this a current diagnosis for this admission?: Yes (2) Hypertension Qualifiers: Hypertension type: essential hypertension Qualified Code(s): I10 - Essential (primary) hypertension Is this a current diagnosis for this admission?: Yes (3) Leukocytosis Qualifiers: Leukocytosis type: unspecified Qualified Code(s): D72.829 - Elevated white blood cell count, unspecified Is this a current diagnosis for this admission?: Yes (4) Diabetes mellitus type 2 in obese Is this a current diagnosis for this admission?: Yes - Plan Summary Summary: Patient will be admitted to the medical floor where he will receive routine supportive and symptomatic cares. He will be treated with antibiotics utilizing vancomycin and cefepime administered intravenously. He will be seen in consultation by Dr. Conroy for surgical management as per Dr. Conroy's reque st. He will use morphine sulfate 2 to 4 mg IV every 2 hours on as-needed basis for control of pain. He will receive IV fluids utilizing lactated Ringer's at 250 mL/h initially. CBCs, metabolic profiles and magnesium levels will be obtained as required. Serial lactic acids will be performed every 4 hours x3. Before meals and at bedtime Accu-Cheks be performed with sliding scale insulin for hyperglycemia and a hypoglycemic protocol in place. - Time Time Spent with patient: 15-24 minutes Medications reviewed and adjusted accordingly: Yes Anticipated discharge: Home - Inpatient Certification Based on my medical assessment, after consideration of the patient's comorbidities, presenting symptoms, or acuity I expect that the services needed warrant INPATIENT care.: Yes I certify that my determination is in accordance with my understanding of Medicare's requirements for reasonable and necessary INPATIENT services [42 CFR 412.3e].: Yes Medical Necessity: Need For IV Fluids, Need for Pain Control, Need for IV An tibiotics, Need for Surgery
[2019-08-04] MEDS: PANTOPRAZOLE SODIUM 40 MG TABLET.DR PO SCH ×2 (06:51→17:13)
[2019-08-04] MEDS: HEPARIN SOD (PORCINE) 5,000 UNIT/ML 1 ML VIAL SUBCUT SCH ×3 (06:51→21:51)
--- NOTE | 2019-08-04 07:00 | PDOC CONSULTATION ---
Consultation Consult Date: 08/04/19 Attending physician:: RACHEL KRAFT Provider Consulted: MILAN CONROY Consult reason:: Left foot ulcers History of Present Illness Admission Date/PCP: 08/04/19 02:44 History of Present Illness: CONI WAGGONER is a 28 year old male Presents emergency department via ground rescue complaining of left foot pain. Patient is a brittle diabetic, with peripheral vascular disease, 1 year status post right first through 3 amputations in [place] in [place]. 20 days ago patient underwent bilateral feet debridement for plantar ulcers by Dr. Conroy. Patient was growing MRSA, Klebsiella, and staph aureus at the time. He was discharged home to the [facility]. Patient does not know when his dressings were changed on either foot. This morning morning at 6:00 when I examined the patient, the patient still had his right foot sandal on and original dressing; the human right foot had not been examined to date. Dressing was removed, there was watery purulent discharge coming from the operative scar at the amputation closure site. The patient was kept n.p.o. and right foot x- ray ordered. During last admission patient had arterial duplex study showing triphasic flow to the infrageniculate vessels on the right and left. Biphasic flow in the posterior tibial and dorsalis pedis arteries on the left; no ABIs calculated. Past Medical History Cardiac Medical History: Reports: Hypertension Denies: Coronary Artery Disease, Hyperlipidema Pulmonary Medical History: Denies: Asthma, Chronic Obstructive Pulmonary Disease (COPD) EENT Medical History: Denies: Cataracts, Eyes - Diabetic retinal disease Neurological Medical History: Denies: Hemorrhagic CVA, Ischemic CVA, Seizures Endocrine Medical History: Reports: Diabetes Mellitus Type 1, Diabetes Mellitus Type 2 Denies: Hyperthyroidism, Hypothyroidism Renal/ Medical History: Denies: Chronic Kidney Disease, Nephrolithiasis Malignancy Medical History: Reports: None GI Medical History: Denies: Cirrhosis, Crohn's Disease, Gastroesophageal Reflux Disease, Hepatitis, Hiatal Hernia, Peptic Ulcer Disease, Ulcerative Colitis Musculoskeltal Medical History: Denies: Arthritis, Gout Skin Medical History: Denies: Eczema, Psoriasis Psychiatric Medical History: Denies: Alcohol Dependency, Depression, Substance Abuse, Tobacco Dependency Traumatic Medical History: Reports: None Hematology: Denies: Anemia, Bleeding Tendencies Infectious Medical History: Reports: Methicillin-Resistant Staph Aureus Past Surgical History Past Surgical History: Amputation to right first second and third toes, status post debridement of feet and toenails Past Surgical History: Reports: Orthopedic Surgery - Excision of 3 toes on the right foot recent debridement of left foot ulcer Social History Lives with: Parents Smoking Status: Never Smoker Electronic Cigarette use?: No Frequency of Alcohol Use: Rare Hx Recreational Drug Use: No Drugs: None Hx Prescription Drug Abuse: No - Advance Directive Resuscitation Status: Full Code Family History Family History: None, Hypertension Parental Family History Reviewed: No Children Family History Reviewed: No Sibling(s) Family History Reviewed.: No Medication/Allergy Home Medications: Acetaminophen [Tylenol 325 mg Tablet] 650 mg PO Q4HP PRN tablet 07/19/19 Insulin Glargine,Hum.rec.anlog [Lantus Insulin 100 Unit/1 ml 10 ml] 10 unit SUBCUT QHS 30 Days #30 unit 07/19/19 Lisinopril [Prinivil 5 mg Tablet] 5 mg PO DAILY 30 Days #30 tablet 07/19/19 Sulfamethoxazole/Trimethoprim [Septra-Ds 800-160 mg Tablet] 2 tab PO Q12 4 Days #16 tablet 07/19/19 Allergies/Adverse Reactions: banana Allergy (Verified 07/14/19 22:31) latex Allergy (Verified 07/14/19 22:31) nickel Allergy (Verified 07/14/19 22:31) oritavancin [From Orbactiv] Allergy (Verified 07/14/19 22:31) tomato Allergy (Verified 07/14/19 22:31) Review of Systems Constitutional: ABSENT: chills, fever(s), headache(s), weight gain, weight loss Eyes: ABSENT: visual disturbances Ears: ABSENT: hearing changes Cardiovascular: ABSENT: chest pain, dyspnea on exertion, edema, orthropnea, palpitations Respiratory: ABSENT: cough, hemoptysis Gastrointestinal: ABSENT: abdominal pain, constipation, diarrhea, hematemesis, hematochezia, nausea, vomiting Musculoskeletal: PRESENT: as per HPI, other - Patient has insensate feet Neurological: PRESENT: abnormal gait, other - Insensate feet Physical Exam Vital Signs: Temp Pulse Resp BP Pulse Ox 98.1 F 81 17 131/69 H 99 08/04/19 04:10 08/04/19 04:10 08/04/19 04:10 08/04/19 04:10 08/04/19 04:10 Intake & Output 08/02/19 08/03/19 08/04/19 06:59 06:59 06:59 Intake Total 1050 Balance 1050 Weight 96.3 kg General appearance: PRESENT: mild distress, other - Room smells very strong Head exam: PRESENT: atraumatic Eye exam: PRESENT: EOMI Neck exam: PRESENT: full ROM Cardiovascular exam: PRESENT: RRR Pulses: PRESENT: normal carotid pulses, normal radial pulses, normal femoral pulses, other - Unable to palpate pulses in feet due to edema Vascular exam: PRESENT: other - Unable to palpate pulses in feet due to edema GI/Abdominal exam: PRESENT: soft Rectal exam: PRESENT: deferred Musculoskeletal exam: PRESENT: other - Feet exposed there are severe are Charcot changes to the left foot. There are chronic mal perforans ulcers on the left first and fifth metatarsal areas. Some heat scar, no foul smell. The right foot surgical sandal, smelly sock, soaked through foul-smelling Kerlix all removed. There is some I eschar on the plantar surface medially. There is a ulcer 2 x 2 cm fairly clean granulating. The eschar is pulled off. Toes 4 and 5 intact. With deep mashing of the right foot, some seropurulent discharge is expressed from previous scar along the toe amputation line. The foot is warm. Results Laboratory Results: 08/03/19 21:58 08/03/19 21:58 08/03/19 08/03/19 08/03/19 21:58 21:58 21:58 WBC 15.7 H RBC 4.52 Hgb 13.1 L Hct 37.8 L MCV 84 MCH 29.1 MCHC 34.8 RDW 12.6 Plt Count 355 Seg Neutrophils % 73.3 VBG pH VBG pCO2 VBG HCO3 VBG Base Excess Sodium 139.2 Potassium 4.4 Chloride 96 L Carbon Dioxide 31 H Anion Gap 12 BUN 16 Creatinine 1.37 H Est GFR ( Amer) > 60 Glucose 218 H Lactic Acid 1.3 Calcium 10.2 Total Bilirubin 0.6 AST 16 L Alkaline Phosphatase 106 Total Protein 8.5 H Albumin 4.5 Lipase 08/03/19 08/03/19 08/04/19 21:58 22:40 01:26 WBC RBC Hgb Hct MCV MCH MCHC RDW Plt Count Seg Neutrophils % VBG pH 7.37 VBG pCO2 48.7 VBG HCO3 27.6 VBG Base Excess 1.6 Sodium Potassium Chloride Carbon Dioxide Anion Gap BUN Creatinine Est GFR ( Amer) Glucose Lactic Acid 1.0 Calcium Total Bilirubin AST Alkaline Phosphatase Total Protein Albumin Lipase 40.8 08/04/19 04:22 WBC RBC Hgb Hct MCV MCH MCHC RDW Plt Count Seg Neutrophils % VBG pH VBG pCO2 VBG HCO3 VBG Base Excess Sodium Potassium Chloride Carbon Dioxide Anion Gap BUN Creatinine Est GFR ( Amer) Glucose Lactic Acid 1.0 Calcium Total Bilirubin AST Alkaline Phosphatase Total Protein Albumin Lipase Impressions: Foot X-Ray 08/04/19 00:13 IMPRESSION: Soft tissue ulcer without definite osteomyelitis. Assessment & Plan - Diagnosis (1) Right foot infection Is this a current diagnosis for this admission?: Yes Plan: Impression: 1. Recurrent soft tissue infection, possible osteomyelitis right foot in brittle noncompliant 28-year-old diabetic with history of a previous first second and third toe amputations, and subsequent debridement of plantar surface ulcer Recommendations: 1. We will keep patient n.p.o., and obtain x-rays of the right foot. I am concerned there is residual soft tissue infection in the distal aspect of the foot underlying the amputation site 2. Agree with IV fluids, insulin, and empiric antibiotic therapy. Suspect patient has polymicrobial infection in the right foot. (2) Diabetic ulcer of left foot Qualifiers: Diabetic foot ulcer location: other Diabetes mellitus type: type 2 Non- pressure ulcer stage: unspecified non-pressure ulcer stage Qualified Code(s): E11.621 - Type 2 diabetes mellitus with foot ulcer; L97.529 - Non-pressure chronic ulcer of other part of left foot with unspecified severity Is this a current diagnosis for this admission?: Yes Plan: Impression: Charcot foot, with osteo-arthropathy, and chronic ulcers plantar surface mal perforans type I and V (3) Charcot foot due to diabetes mellitus Is this a current diagnosis for this admission?: Yes (4) Diabetes mellitus type 2 in obese Is this a current diagnosis for this admission?: Yes (5) Hypertension Qualifiers: Hypertension type: essential hypertension Qualified Code(s): I10 - Essential (primary) hypertension Is this a current diagnosis for this admission?: Yes (6) Noncompliance Is this a current diagnosis for this admission?: Yes (7) Acute renal insufficiency Is this a current diagnosis for this admission?: Yes - Time Time Spent: 30 to 50 Minutes Smoking Cessation Education: over 10 minutes Medications reviewed and adjusted accordingly: Yes Anticipated discharge: Home - Inpatient Certification Based on my medical assessment, after consideration of the patient's comorbidities, presenting symptoms, or acuity I expect that the services needed warrant INPATIENT care.: Yes I certify that my determination is in accordance with my understanding of Medicare's requirements for reasonable and necessary INPATIENT services [42 CFR 412.3e].: Yes Medical Necessity: Need For IV Fluids, Need for Pain Control, Need for IV Antibiotics, Need for Surgery
[2019-08-04] MEDS: INSULIN REG, HUMAN 100 UNIT/ML 3 ML VIAL (PYX) SUBCUT SCH ×4 (07:48→21:51)
[2019-08-04] MEDS: ACETAMINOPHEN 325 MG TABLET PO PRN (07:53)
[2019-08-04] MEDS ORDERED: LIDOCAINE 1% INJ-PF (10 MG/ML) 30 ML SDV ONE (09:08)
[2019-08-04] MEDS ORDERED: BUPIVACAINE HCL 0.25 % INJ/PF (2.5 MG/1 ML) 30 ML VIAL ONE (09:08)
--- NOTE | 2019-08-04 09:20 | RADIOLOGY REPORT (SQ) ---
EXAM DESCRIPTION: FOOT RIGHT COMPLETE COMPLETED DATE/TIME: 08/04/2019 7:36 am REASON FOR STUDY: Pus, osteomyelitis right foot COMPARISON: Foot films 07/14/2019 MRI right foot 07/15/2027 NUMBER OF VIEWS: Three views. TECHNIQUE: AP, lateral and oblique radiographic images acquired of the right foot. LIMITATIONS: None. FINDINGS: MINERALIZATION: Normal. BONES: Post transmetatarsal amputation of the 1st through 3rd toes. Bony remodeling at the distal 1s t through 3rd metatarsals, similar compared to MRI 07/15/2019 and plain films 07/14/2019, likely chronic healed postoperative change. No new aggressive bony demineralization or periostitis to suggest acu te osteomyelitis. No acute fracture JOINTS: No effusions. SOFT TISSUES: Diffuse forefoot soft tissue swelling. 2 cm ulcer over the 1st metatarsal stump. OTHER: No other significant finding. IMPRESSION: 2 cm soft tissue ulcer over the right 1st metatarsal stump. Diffuse forefoot soft tissu e swelling. No new aggressive bony changes to suggest osteomyelitis TECHNICAL DOCUMENTATION: JOB ID: [id number] [employer]- All Rights Reserved Reading location - IP/workstation name: [facility]
[2019-08-04] MEDS ORDERED: METOCLOPRAMIDE HCL INJ/PF 10 MG/2 ML SDV ONE (10:25)
[2019-08-04] MEDS ORDERED: FENTANYL CITRATE INJ/PF 100 MCG/2 ML AMPUL ONE (10:26)
[2019-08-04] MEDS ORDERED: PROPOFOL INJ 200 MG/20 ML VIAL IV ONE (10:27)
[2019-08-04] MEDS ORDERED: MIDAZOLAM 2 MG/2 ML INJ ONE (10:27)
[2019-08-04] MEDS ORDERED: FENTANYL CITRATE INJ/PF 100 MCG/2 ML AMPUL IV PRN ×3 (10:44)
[2019-08-04] MEDS ORDERED: DIPHENHYDRAMINE HCL 50 MG/ML VIAL IV PRN (10:44)
[2019-08-04] MEDS ORDERED: MEPERIDINE HCL/PF INJ 25 MG/1 ML DISP.SYRIN IV PRN (10:44)
--- NOTE | 2019-08-04 10:51 | EKG REPORT ---
SEVERITY:- OTHERWISE NORMAL ECG - SINUS TACHYCARDIA NONSPECIFIC INTRAVENTRICULAR CONDUCTION DELAY : Confirmed by: Zachariah Castellano MD 04-Aug-2019 10:50:26
[2019-08-04] MEDS: DOCUSATE SODIUM 100 MG CAPSULE PO SCH ×2 (12:26→17:13)
--- NOTE | 2019-08-04 14:41 | Operative Report ---
Nonrecallable Operative Report DATE OF SURGERY: 08/04/19 PREOPERATIVE DIAGNOSIS: Left diabetic foot abscess POSTOPERATIVE DIAGNOSIS: Same as above OPERATION: 1. Drainage of diabetic foot abscess. 2. Sharp, excisional debridement of nonviable tissue of the plantar surface of the left foot. SURGEON: LUCY BALLARD ANESTHESIA: LMAC TISSUE REMOVED OR ALTERED: Sharp, excisional debridement of nonviable tissue of the left foot COMPLICATIONS: None apparent ESTIMATED BLOOD LOSS: Minimal PROCEDURE: Drains/implants: 4 x 4 gauze packing. Procedure in detail: After informed consent was obtained, the patient was brought to the operating room and laid in the supine position. The area of bilateral feet were prepped and draped in a normal sterile fashion. The left foot was examined. There is purulent material emanating from an ulcer on the plantar surface at the fifth metatarsal head. There was a large amount of purulent material within the ulcer. There was tunneling both proximally and distally. This was probed and opened in blunt fashion. A moderate amount of purulent material was expressed. The abscess cavity appeared contiguous with the ulcer bed. In light of this a separate incision was not created. A curette was then used to curette the abscess cavity. Some devitalized skin, fatty tissue, and muscle was evident within the ulcer. This was debrided away sharply with a 15 blade scalpel. After the wound was vigorously cleaned, the other ulcerated area of the left foot was examined. It was also curetted, but there was no tunneling or purulent material present. Once this was confirmed attention was turned to the right foot. There was some thickened skin and peeling noted on the right foot. This was vigorously cleaned with a Betadine scrub brush, which loosened and removed a large portion of the dried/cracked skin. Once this was completed dressings were fashioned, and the procedure was concluded. All sponge, instruments, and needle counts were correct x2. Condition: Stable.
--- NOTE | 2019-08-04 16:10 | Progress Note ---
Provider Note Provider Note: 08/04/19 Patient seen briefly, his vital signs stable postop temperature 97.6 pulse 77 blood pressure 124/78 O2 sat 97% on room air Patient currently on vancomycin Admission labs showed a white count of 15,700 Lactic acid was normal on admission Patient's creatinine on admission was 1.37, creatinine in the chart was 0.95 approximately 2 weeks ago Wound culture is growing out gram-negative rods on preliminary Patient went to the OR earlier today for left diabetic foot abscess with drainage and debridement Resume home meds continue insulin sliding scale, continue IV vancomycin until cultures return
[2019-08-04] MEDS: VANCOMYCIN HCL 1,500 MG in DEXTROSE 5%-WATER 250 ML IV SCH (16:18)
[2019-08-04] MEDS ORDERED: INSULIN GLARGINE,HUM.REC.ANLOG 1,000 UNIT/10 ML VIAL SUBCUT SCH ×2 (22:00)
[2019-08-05] MEDS: VANCOMYCIN HCL 1,500 MG in DEXTROSE 5%-WATER 250 ML IV SCH ×2 (04:59→15:12)
[2019-08-05] MEDS: HEPARIN SOD (PORCINE) 5,000 UNIT/ML 1 ML VIAL SUBCUT SCH ×3 (05:02→21:11)
[2019-08-05] MEDS: PANTOPRAZOLE SODIUM 40 MG TABLET.DR PO SCH ×2 (05:02→16:32)
[2019-08-05 06:32] LABS: HEMATOCRIT 32.8 % (37.9-51.0); HEMOGLOBIN 11.8 g/dL (13.5-17.0); MEAN CORPUSCULAR HEMOGLOBIN 29.9 pg (27.0-33.4); MEAN CORPUSCULAR HGB CONC 35.9 g/dL (32.0-36.0); MEAN CORPUSCULAR VOLUME 83 fl (80-97); PLATELET COUNT 277 10^3/uL (150-450); RED BLOOD COUNT 3.94 10^6/uL (4.35-5.55); RED CELL DISTRIBUTION WIDTH 12.4 % (11.5-14.0); WHITE BLOOD COUNT 10.5 10^3/uL (4.0-10.5)
[2019-08-05 06:59] LABS: ALBUMIN 3.7 g/dL (3.5-5.0); ALKALINE PHOSPHATASE 88 U/L (38-126); ANION GAP 11 (5-19); ASPARTATE AMINO TRANSFERASE 13 U/L (17-59); BILIRUBIN,DIRECT 0.3 mg/dL (0.0-0.4); BILIRUBIN,TOTAL 0.4 mg/dL (0.2-1.3); BLOOD UREA NITROGEN 14 mg/dL (7-20); CALCIUM 9.4 mg/dL (8.4-10.2); CARBON DIOXIDE 27 mmol/L (22-30); CHLORIDE 100 mmol/L (98-107); GLUCOSE 202 mg/dL (75-110); POTASSIUM 4.1 mmol/L (3.6-5.0); TOTAL PROTEIN 7.1 g/dL (6.3-8.2)
[2019-08-05] MEDS: INSULIN REG, HUMAN 100 UNIT/ML 3 ML VIAL (PYX) SUBCUT SCH ×4 (07:39→21:11)
[2019-08-05] MEDS: LISINOPRIL 5 MG TABLET PO SCH (09:06)
[2019-08-05] MEDS: DOCUSATE SODIUM 100 MG CAPSULE PO SCH ×2 (09:06→17:02)
--- NOTE | 2019-08-05 16:42 | PDOC PROGRESS REPORT ---
Subjective Progress Note for:: 08/05/19 Reason For Visit: DIABETIC FOOT ULCER LEFT SOLE, LEUKOCYTO 08/05/2019 MRSA, diabetes, ulcer of the lower extremity, patient noncompliance Physical Exam Vital Signs: Temp Pulse Resp BP Pulse Ox 98.0 F 74 16 130/80 H 98 08/05/19 11:48 08/05/19 11:48 08/05/19 11:48 08/05/19 11:48 08/05/19 11:48 Intake & Output 08/04/19 08/05/19 08/06/19 06:59 06:59 06:59 Intake Total 1050 1526 360 Output Total 300 1855 800 Balance 750 329 -440 Weight 96.3 kg 97.4 kg General appearance: PRESENT: no acute distress, other Respiratory exam: PRESENT: clear to auscultation jonathan. ABSENT: rales, rhonchi, wheezes Cardiovascular exam: PRESENT: RRR. ABSENT: diastolic murmur, rubs, systolic murmur Neurological exam: PRESENT: alert, awake, oriented to person, oriented to place, oriented to time, oriented to situation, CN II-XII grossly intact. ABSENT: motor sensory deficit Psychiatric exam: PRESENT: appropriate affect, normal mood, other - Patient seems to not have a care in the world. ABSENT: homicidal ideation, suicidal ideation Results Laboratory Results: 08/05/19 05:32 08/05/19 05:32 08/05/19 08/05/19 05:32 05:32 WBC 10.5 RBC 3.94 L Hgb 11.8 L Hct 32.8 L MCV 83 MCH 29.9 MCHC 35.9 RDW 12.4 Plt Count 277 Sodium 138.4 Potassium 4.1 Chloride 100 Carbon Dioxide 27 Anion Gap 11 BUN 14 Creatinine 1.06 Est GFR ( Amer) > 60 Glucose 202 H Calcium 9.4 Magnesium 2.0 Total Bilirubin 0.4 AST 13 L Alkaline Phosphatase 88 Total Protein 7.1 Albumin 3.7 08/04/19 00:05 Foot - Diabetic Ulcer Gram Stain - Final Impressions: Foot X-Ray 08/04/19 06:46 IMPRESSION: 2 cm soft tissue ulcer over the right 1st metatarsal stump. Diffuse forefoot soft tissue swelling. No new aggressive bony changes to suggest osteomyelitis Assessment and Plan - Diagnosis (1) Acute renal insufficiency Is this a current diagnosis for this admission?: Yes (2) Diabetic foot ulcer Qualifiers: Diabetic foot ulcer location: other Diabetes mellitus type: type 2 Laterality: left Non-pressure ulcer stage: with necrosis of muscle Qualified Code(s): E11.621 - Type 2 diabetes mellitus with foot ulcer; L97.523 - Non- pressure chronic ulcer of other part of left foot with necrosis of muscle Is this a current diagnosis for this admission?: Yes (3) Leukocytosis Qualifiers: Leukocytosis type: unspecified Qualified Code(s): D72.829 - Elevated white blood cell count, unspecified Is this a current diagnosis for this admission?: Yes (4) Bacteremia Is this a current diagnosis for this admission?: Yes (5) Hypertension Qualifiers: Hypertension type: essential hypertension Qualified Code(s): I10 - Esse ntial (primary) hypertension Is this a current diagnosis for this admission?: Yes (6) Noncompliance Is this a current diagnosis for this admission?: Yes (7) Osteomyelitis Qualifiers: Osteomyelitis type: unspecified type Osteomyelitis location: foot Laterality: right Qualified Code(s): M86.9 - Osteomyelitis, unspecified Is this a current diagnosis for this admission?: Yes - Plan Summary Summary: Patient will be admitted to the medical floor where he will receive routine supportive and symptomatic cares. He will be treated with antibiotics utilizing vancomycin and cefepime administered intravenously. He will be seen in consu ltation by Dr. Conroy for surgical management as per Dr. Conroy's request. He will use morphine sulfate 2 to 4 mg IV every 2 hours on as-needed basis for control of pain. He will receive IV fluids utilizing lactated Ringer's at 250 mL/h initially. CBCs, metabolic profiles and magnesium levels will be obtained as required. Serial lactic acids will be performed every 4 hours x3. Before meals and at bedtime Accu-Cheks be performed with sliding scale insulin for hyperglycemia and a hypoglycemic protocol in place. 1989 Vital signs are stable temperature 98 pulse 74 blood pressure 134/80. O2 sat 98% on room air he is on 10 units of Lantus plus a sliding scale of regular Admission white count 15,700 today is 10.5 Sugars are running in the high 200s. Will increase his Lantus to 16 units Wound culture is growing out notable organisms Currently on IV vancomycin - Time Time Spent with patient: 15-24 minutes
--- NOTE | 2019-08-05 17:04 | PDOC PROGRESS REPORT ---
Subjective Progress Note for:: 08/05/19 Reason For Visit: DIABETIC FOOT ULCER LEFT SOLE, LEUKOCYTOSIS Physical Exam Vital Signs: Temp Pulse Resp BP Pulse Ox 98.2 F 81 16 127/83 H 100 08/05/19 15:35 08/05/19 15:35 08/05/19 15:35 08/05/19 15:35 08/05/19 15:35 Intake & Output 08/04/19 08/05/19 08/06/19 06:59 06:59 06:59 Intake Total 1050 1526 360 Output Total 300 1855 800 Balance 750 -329 -440 Weight 96.3 kg 97.4 kg Results Laboratory Results: 08/05/19 05:32 08/05/19 05:32 08/05/19 08/05/19 05:32 05:32 WBC 10.5 RBC 3.94 L Hgb 11.8 L Hct 32.8 L MCV 83 MCH 29.9 MCHC 35.9 RDW 12.4 Plt Count 277 Sodium 138.4 Potassium 4.1 Chloride 100 Carbon Dioxide 27 Anion Gap 11 BUN 14 Creatinine 1.06 Est GFR ( Amer) > 60 Glucose 202 H Calcium 9.4 Magnesium 2.0 Total Bilirubin 0.4 AST 13 L Alkaline Phosphatase 88 Total Protein 7.1 Albumin 3.7 08/04/19 00:05 Foot - Diabetic Ulcer Gram Stain - Final Impressions: Foot X-Ray 08/04/19 06:46 IMPRESSION: 2 cm soft tissue ulcer over the right 1st metatarsal stump. Diffuse forefoot soft tissue swelling. No new aggressive bony changes to suggest osteomyelitis Assessment & Plan - Diagnosis (1) Diabetic foot ulcer Qualifiers: Diabetic foot ulcer location: other Diabetes mellitus type: type 2 Laterality: left Non-pressure ulcer stage: with necrosis of muscle Qualified Code(s): E11.621 - Type 2 diabetes mellitus with foot ulcer; L97.523 - Non- pressure chronic ulcer of other part of left foot with necrosis of muscle Is this a current diagnosis for this admission?: Yes - Time Time Spent with patient: Less than 15 minutes - Plan Summary Plan Summary: This is a 28-year-old male status post drainage of a left foot abscess with debridement of nonviable tissue. The patient reports less foot pain today. His white count is normal today. He is afebrile. His wound looks good. Initiate damp to dry dressing changes twice daily. Okay for discharge from a surgical standpoint once cultures have revealed a causative organism. The patient will require tight glucose control for optimal healing. The patient has expressed understanding of this.
[2019-08-05] MEDS: ACETAMINOPHEN 325 MG TABLET PO PRN (19:26)
[2019-08-05] MEDS: INSULIN GLARGINE,HUM.REC.ANLOG 1,000 UNIT/10 ML VIAL SUBCUT SCH (21:12)
[2019-08-05] MEDS ORDERED: DOXYCYCLINE HYCLATE 100 MG TABLET PO ONE (21:19)
[2019-08-05] MEDS: DOXYCYCLINE HYCLATE 100 MG TABLET PO SCH (21:33)
[2019-08-06] MEDS: VANCOMYCIN HCL 1,500 MG in DEXTROSE 5%-WATER 250 ML IV SCH ×2 (04:52→16:31)
[2019-08-06] MEDS: PANTOPRAZOLE SODIUM 40 MG TABLET.DR PO SCH ×2 (05:08→16:31)
[2019-08-06] MEDS: HEPARIN SOD (PORCINE) 5,000 UNIT/ML 1 ML VIAL SUBCUT SCH ×3 (05:08→21:06)
[2019-08-06 05:35] LABS: HEMATOCRIT 33.9 % (37.9-51.0); HEMOGLOBIN 11.9 g/dL (13.5-17.0); MEAN CORPUSCULAR HEMOGLOBIN 29.4 pg (27.0-33.4); MEAN CORPUSCULAR HGB CONC 35.2 g/dL (32.0-36.0); MEAN CORPUSCULAR VOLUME 84 fl (80-97); PLATELET COUNT 278 10^3/uL (150-450); RED BLOOD COUNT 4.06 10^6/uL (4.35-5.55); RED CELL DISTRIBUTION WIDTH 12.5 % (11.5-14.0); WHITE BLOOD COUNT 8.9 10^3/uL (4.0-10.5)
[2019-08-06] MEDS: INSULIN REG, HUMAN 100 UNIT/ML 3 ML VIAL (PYX) SUBCUT SCH ×4 (08:35→21:04)
[2019-08-06] MEDS: LISINOPRIL 5 MG TABLET PO SCH (09:19)
[2019-08-06] MEDS: DOXYCYCLINE HYCLATE 100 MG TABLET PO SCH (09:19)
[2019-08-06] MEDS: DOCUSATE SODIUM 100 MG CAPSULE PO SCH ×2 (09:19→17:30)
--- NOTE | 2019-08-06 11:01 | PDOC PROGRESS REPORT ---
Subjective Progress Note for:: 08/06/19 Reason For Visit: DIABETIC FOOT ULCER LEFT SOLE, LEUKOCYTOSIS No complaints, feels better Physical Exam Vital Signs: Temp Pulse Resp BP Pulse Ox 97.7 F 65 14 124/79 99 08/06/19 07:44 08/06/19 07:44 08/06/19 07:44 08/06/19 07:44 08/06/19 07:44 Intake & Output 08/05/19 08/06/19 08/07/19 06:59 06:59 06:59 Intake Total 1526 1690 250 Output Total 1855 1850 Balance -329 -160 250 Weight 97.4 kg 93.7 kg General appearance: PRESENT: no acute distress Musculoskeletal exam: PRESENT: other - Resting was removed; right plantar, and left mal perforans ulcers clean, no foul smell or drainage. Results Laboratory Results: 08/06/19 04:52 08/05/19 05:32 08/05/19 08/06/19 18:10 04:52 WBC 8.9 RBC 4.06 L Hgb 11.9 L Hct 33.9 L MCV 84 MCH 29.4 MCHC 35.2 RDW 12.5 Plt Count 278 Lactic Acid 1.7 08/04/19 00:05 Foot - Diabetic Ulcer Gram Stain - Final 08/04/19 00:05 Foot - Diabetic Ulcer Wound Culture - Final Morganella Morganii Mrsa (Meth Resis Staph Aureus) Enterococcus Faecalis(Group D) Staphylococcus Aureus Prevotella Species Impressions: Foot X-Ray 08/04/19 06:46 IMPRESSION: 2 cm soft tissue ulcer over the right 1st metatarsal stump. Diffuse forefoot soft tissue swelling. No new aggressive bony changes to suggest osteomyelitis Assessment & Plan - Diagnosis (1) Right foot infection Is this a current diagnosis for this admission?: Yes Plan: Impression: Stable bilateral diabetic feet wounds in noncompliant male Recommendations: 1. Patient growing MRSA from wound; appropriate transition to p.o. antibiotics is a reasonable option 2. Dressing changes with Xeroform 4 x 4's Kerlix and surgical sandals 3. [facility] with [facility] on outpatient basis. (2) Diabetic ulcer of left foot Qualifiers: Diabetic foot ulcer location: other Diabetes mellitus type: type 2 Non- pressure ulcer stage: unspecified non-pressure ulcer stage Qualified Code(s): E11.621 - Type 2 diabetes mellitus with foot ulcer; L97.529 - Non-pressure chronic ulcer of other part of left foot with unspecified severity Is this a current diagnosis for this admission?: Yes (3) Charcot foot due to diabetes mellitus Is this a current diagnosis for this admission?: Yes (4) Diabetes mellitus type 2 in obese Is this a current diagnosis for this admission?: Yes (5) Hypertension Qualifiers: Hypertension type: essential hypertension Qualified Code(s): I10 - Essential (primary) hypertension Is this a current diagnosis for this admission?: Yes (6) Noncompliance Is this a current diagnosis for this admission?: Yes (7) Acute renal insufficiency Is this a current diagnosis for this admission?: Yes - Time Time Spent with patient: Less than 15 minutes
--- NOTE | 2019-08-06 15:13 | PDOC PROGRESS REPORT ---
Subjective Progress Note for:: 08/06/19 Reason For Visit: DIABETIC FOOT ULCER LEFT SOLE, LEUKOCYTOSIS Physical Exam Vital Signs: Temp Pulse Resp BP Pulse Ox 98.4 F 105 H 16 107/63 95 08/06/19 12:00 08/06/19 12:00 08/06/19 12:00 08/06/19 12:00 08/06/19 12:00 Intake & Output 08/05/19 08/06/19 08/07/19 06:59 06:59 06:59 Intake Total 1526 1690 250 Output Total 1855 1850 600 Balance -329 -160 -350 Weight 97.4 kg 93.7 kg General appearance: PRESENT: no acute distress Respiratory exam: PRESENT: clear to auscultation jonathan. ABSENT: rales, rhonchi, wheezes Cardiovascular exam: PRESENT: RRR. ABSENT: diastolic murmur, rubs, systolic murmur Extremities exam: PRESENT: other - Postop sites appear to be clean with no significant drainage Neurological exam: PRESENT: alert, awake, oriented to person, oriented to place, oriented to time, oriented to situation, CN II-XII grossly intact. ABSENT: motor sensory deficit Psychiatric exam: PRESENT: appropriate affect, normal mood. ABSENT: homicidal ideation, suicidal ideation Results Laboratory Results: 08/06/19 04:52 08/05/19 05:32 08/05/19 08/06/19 18:10 04:52 WBC 8.9 RBC 4.06 L Hgb 11.9 L Hct 33.9 L MCV 84 MCH 29.4 MCHC 35.2 RDW 12.5 Plt Count 278 Lactic Acid 1.7 08/04/19 00:05 Foot - Diabetic Ulcer Gram Stain - Final 08/04/19 00:05 Foot - Diabetic Ulcer Wound Culture - Final Morganella Morganii Mrsa (Meth Resis Staph Aureus) Enterococcus Faecalis(Group D) Staphylococcus Aureus Prevotella Species Impressions: Foot X-Ray 08/04/19 06:46 IMPRESSION: 2 cm soft tissue ulcer over the right 1st metatarsal stump. Diffu se forefoot soft tissue swelling. 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 Is this a current diagnosis for this admission?: Yes (3) Leukocytosis Qualifiers: Leukocytosis type: unspecified Qualified Code(s): D72.829 - Elevated white blood cell count, unspecified Is this a current diagnosis for this admission?: Yes (4) Bacteremia Is this a current diagnosis for this admission?: Yes (5) Hypertension Qualifiers: Hypertension type: essential hypertension Qualified Code(s): I10 - Essential (primary) hypertension Is this a current diagnosis for this admission?: Yes (6) Noncompliance Is this a current diagnosis for this admission?: Yes (7) Osteomyelitis Qualifiers: Osteomyelitis type: unspecified type Osteomyelitis location: foot Laterality: right Qualified Code(s): M86.9 - Osteomyelitis, unspecified Is this a current diagnosis for this admission?: Yes - Plan Summary Summary: Patient will be admitted to the medical floor where he will receive routine supportive and symptomatic cares. He will be treated with antibiotics utilizing vancomycin and cefepime administered intravenously. He will be seen in consultation by Dr. Conroy for surgical management as per Dr. Conroy's request. He will use morphine sulfate 2 to 4 mg IV every 2 hours on as-needed basis for control of pain. He will receive IV fluids utilizing lactated Ringer's at 250 mL/h initially. CBCs, metabolic profiles and magnesium levels will be obtained as required. Serial lactic acids will be performed every 4 hours x3. Before meals and at bedtime Accu-Cheks be performed with sliding scale insulin for hyperglycemia and a hypoglycemic protocol in place. 08/05/2019 Vital signs are stable temperature 98 pulse 74 blood pressure 134/80. O2 sat 98% on room air he is on 10 units of Lantus plus a sliding scale of regular Admission white count 15,700 today is 10.5 Sugars are running in the high 200s. Will increase his Lantus to 16 units Wound culture is growing out notable organisms Currently on IV vancomycin 08/06/2019 Vital signs are still stable Patient was on 10 units of Lantus at home, this was increased to 16 units as his sugars are still running high. Need to be adjusted higher even further Lactic acid level yesterday was 1.7 Patient has multiple organisms growing from his wound. Most significant is the MRSA. X-rays show no evidence of osteomyelitis. Based on sensitivities I think that Bactrim double strength 2 tablets twice daily would be a good choice to sending home on. I am going to DC his vancomycin after today's dose and switch him over to the p.o. Bactrim. Surgery has basically released the patient. Patient will need wet-to-dry dressings twice daily, surgical sandals, and follow-up at the wound care center. I am going to reconsult discharge planning today - Time Time Spent with patient: 25-34 minutes
[2019-08-06 18:05] LABS: VANCOMYCIN,TROUGH 28.2 ug/mL (5.0-20.0)
[2019-08-06] MEDS: INSULIN GLARGINE,HUM.REC.ANLOG 1,000 UNIT/10 ML VIAL SUBCUT SCH (21:05)
[2019-08-06] MEDS: SULFAMETHOXAZOLE/TRIMETHOPRIM 800-160 MG TABLET PO SCH (21:08)
[2019-08-07 06:00] LABS: HEMATOCRIT 35.5 % (37.9-51.0); HEMOGLOBIN 12.4 g/dL (13.5-17.0); MEAN CORPUSCULAR HEMOGLOBIN 29.2 pg (27.0-33.4); MEAN CORPUSCULAR VOLUME 83 fl (80-97); PLATELET COUNT 318 10^3/uL (150-450); RED BLOOD COUNT 4.25 10^6/uL (4.35-5.55); RED CELL DISTRIBUTION WIDTH 12.7 % (11.5-14.0); WHITE BLOOD COUNT 10.8 10^3/uL (4.0-10.5)
[2019-08-07] MEDS: PANTOPRAZOLE SODIUM 40 MG TABLET.DR PO SCH ×3 (06:03→17:27)
[2019-08-07] MEDS: HEPARIN SOD (PORCINE) 5,000 UNIT/ML 1 ML VIAL SUBCUT SCH ×2 (06:03→13:46)
[2019-08-07] MEDS: INSULIN REG, HUMAN 100 UNIT/ML 3 ML VIAL (PYX) SUBCUT SCH ×4 (08:06→17:29)
[2019-08-07] MEDS: SULFAMETHOXAZOLE/TRIMETHOPRIM 800-160 MG TABLET PO SCH (09:02)
[2019-08-07] MEDS: DOCUSATE SODIUM 100 MG CAPSULE PO SCH ×3 (09:03→17:28)
[2019-08-07] MEDS: LISINOPRIL 5 MG TABLET PO SCH (09:03)
[2019-08-07 09:53] LABS: ANION GAP 9 (5-19); BLOOD UREA NITROGEN 14 mg/dL (7-20); CALCIUM 9.4 mg/dL (8.4-10.2); CARBON DIOXIDE 30 mmol/L (22-30); CHLORIDE 100 mmol/L (98-107); GLUCOSE 252 mg/dL (75-110); POTASSIUM 4.3 mmol/L (3.6-5.0)
[2019-08-07 13:13] VITALS: BP 116/72
--- NOTE | 2019-08-08 16:45 | PDOC DISCHARGE SUMMARY ---
Impression - Admit/DC Date/PCP Admission Date/Primary Care Provider: 08/04/19 02:44 Discharge Date: 08/07/19 - Discharge Diagnosis (1) Diabetic foot ulcer Is this a current diagnosis for this admission?: Yes (2) Right foot infection Is this a current diagnosis for this admission?: Yes (3) Acute renal insufficiency Is this a current diagnosis for this admission?: Yes (4) Diabetes mellitus type 2 in obese Is this a current diagnosis for this admission?: Yes (5) Hypertension Is this a current diagnosis for this admission?: Yes - Additional Information Resuscitation Status: Full Code Discharge Diet: Diabetic Discharge Activity: Activity As Tolerated, Balance Activity w/Rest, No Driving, Keep Legs Elevated, No tub bath Referrals: [facility] [Outside] - 08/09/19 4:00 pm () WOUND CARE [Outside] (Patient adilson care or medicaid before being seen.) LUCY BALLARD MD [ACTIVE STAFF] - 08/21/20 10:45 am Prescriptions: Hydrocodone/Acetaminophen [[place] 5-325 mg Tablet] 1 tab PO Q6HP PRN #12 tablet PRN Reason: Sulfamethoxazole/Trimethoprim [Septra-Ds 800-160 mg Tablet] 1 tab PO Q12 7 Days #14 tablet Home Medications: Lisinopril [Zestril] 5 mg PO DAILY 08/04/19 Hydrocodone/Acetaminophen [[place] 5-325 mg Tablet] 1 tab PO Q6HP PRN #12 tablet 08/07/19 Insulin Glargine,Hum.rec.anlog [Lantus Insulin 100 Unit/1 ml 10 ml] 16 unit SUBCUT QHS #0 08/07/19 Sulfamethoxazole/Trimethoprim [Septra-Ds 800-160 mg Tablet] 1 tab PO Q12 7 Days #14 tablet 08/07/19 History of Present Illiness History of Present Illness: Admitting hospitalist's H&P: CONI WAGGONER is a 28 year old male who presented emergency room with a 2-day history of left foot pain. Patient admits gradually worsening pain in his left foot over the last 2 days becoming severe by the time he was seen in the emergency room. His left foot pain is a constant, sharp, nonradiating pain of the sole of the foot worsened by any attempted weightbearing. The pain has been accompanied by subjective chills but no fever. The pain is been associated with several episodes of nausea and vomiting. He was recently discharged from the hospital after surgical debridement of his left foot and finished a course of oral Bactrim. He admits prior similar episodes with previous foot infections. He denies identification of any additional aggravating or ameliorating factors for his left foot pain. In the emergency room he was found to have a white blood count of 15,700 and though he had an initial heart rate of 120 after receiving a liter of IV fluid his heart rate was 96 and the remainder of his vital signs were stable. Patient was subsequently admitted to the hospital for further evaluation and treatment at the request of Dr. Conroy who ordered that the hospitalist service admit the patient and consult him for surgical management. Hospital Course Hospital Course: Patient was started on IV antibiotics. He was also seen by surgery. He underwent drainage of his left diabetic foot abscess and underwent sharp, excisional debridement of the plantar surface of the left foot. His wound cultures are polymicrobial appears to be sensitive to Bactrim. This could be surgery for discharge. He will be discharged on Bactrim. He is on lisinopril at home and was recommended to get another BMP on his follow-up with PCP to monitor his potassium level. He will ff-up with the surgery clinic. His Lantus was also increased. He was strongly advised to be compliant to his diabetic regimen. Physical Exam Vital Signs: Temp Pulse Resp BP Pulse Ox 97.9 F 70 16 116/72 98 08/07/19 16:33 08/07/19 16:33 08/07/19 16:33 08/07/19 16:33 08/07/19 16:33 Intake & Output 08/06/19 08/07/19 08/08/19 06:59 06:59 06:59 Intake Total 1690 962 720 Output Total 1850 1375 500 Balance -160 -413 220 Weight 206 lb 9.17 oz 208 lb 1.862 oz Results Laboratory Results: WBC 10.8 10^3/uL (4.0-10.5) H 08/07/19 04:57 RBC 4.25 10^6/uL (4.35-5.55) L 08/07/19 04:57 Hgb 12.4 g/dL (13.5-17.0) L 08/07/19 04:57 Hct 35.5 % (37.9-51.0) L 08/07/19 04:57 MCV 83 fl (80-97) 08/07/19 04:57 MCH 29.2 pg (27.0-33.4) 08/07/19 04:57 MCHC 35.0 g/dL (32.0-36.0) 08/07/19 04:57 RDW 12.7 % (11.5-14.0) 08/07/19 04:57 Plt Count 318 10^3/uL (150-450) 08/07/19 04:57 Lymph % (Auto) 16.6 % (13-45) 08/03/19 21:58 Carver % (Auto) 8.8 % (3-13) 08/03/19 21:58 Eos % (Auto) 0.8 % (0-6) 08/03/19 21:58 Baso % (Auto) 0.5 % (0-2) 08/03/19 21:58 Absolute Neuts (auto) 11.5 10^3/uL (1.7-8.2) H 08/03/19 21:58 Absolute Lymphs (auto) 2.6 10^3/uL (0.5-4.7) 08/03/19 21:58 Absolute Monos (auto) 1.4 10^3/uL (0.1-1.4) 08/03/19 21:58 Absolute Eos (auto) 0.1 10^3/uL (0.0-0.6) 08/03/19 21:58 Absolute Basos (auto) 0.1 10^3/uL (0.0-0.2) 08/03/19 21:58 Seg Neutrophils % 73.3 % (42-78) 08/03/19 21:58 PT 12.9 SEC (11.4-15.4) 08/03/19 21:58 INR 0.97 08/03/19 21:58 VBG pH 7.37 (7.30-7.42) 08/03/19 22:40 VBG pCO2 48.7 mmHg (35-63) 08/03/19 22:40 VBG HCO3 27.6 mmol/L (20-32) 08/03/19 22:40 VBG Base Excess 1.6 mmol/L 08/03/19 22:40 Sodium 139.3 mmol/L (137-145) 08/07/19 04:57 Potassium 4.3 mmol/L (3.6-5.0) 08/07/19 04:57 Chloride 100 mmol/L (98-107) 08/07/19 04:57 Carbon Dioxide 30 mmol/L (22-30) 08/07/19 04:57 Anion Gap 9 (5-19) 08/07/19 04:57 BUN 14 mg/dL (7-20) 08/07/19 04:57 Creatinine 1.13 mg/dL (0.52-1.25) 08/07/19 04:57 Est GFR ( Amer) > 60 (>60) 08/07/19 04:57 Est GFR (MDRD) Non-Af > 60 (>60) 08/07/19 04:57 Glucose 252 mg/dL (75-110) H 08/07/19 04:57 POC Glucose 219 mg/dL (70-110) H 08/07/19 16:38 Hemoglobin A1c % 10.3 % (4.7-6.0) H 08/05/19 05:32 Lactic Acid 1.7 mmol/L (0.7-2.1) 08/05/19 18:10 Calcium 9.4 mg/dL (8.4-10.2) 08/07/19 04:57 Magnesium 2.0 mg/dL (1.6-2.3) 08/05/19 05:32 Total Bilirubin 0.4 mg/dL (0.2-1.3) 08/05/19 05:32 Direct Bilirubin 0.3 mg/dL (0.0-0.4) 08/05/19 05:32 Neonat Total Bilirubin Not Reportable 08/05/19 05:32 Neonat Direct Bilirubin Not Reportable 08/05/19 05:32 Neonat Indirect Bili Not Reportable 08/05/19 05:32 AST 13 U/L (17-59) L 08/05/19 05:32 ALT 8 U/L (<50) 08/05/19 05:32 Alkaline Phosphatase 88 U/L (38-126) 08/05/19 05:32 Total Protein 7.1 g/dL (6.3-8.2) 08/05/19 05:32 Albumin 3.7 g/dL (3.5-5.0) 08/05/19 05:32 Lipase 40.8 U/L (23-300) 08/03/19 21:58 Time Trough Drawn 1721 08/06/19 17:21 Vancomycin Trough 28.2 ug/mL (5.0-20.0) H 08/06/19 17:21 Impressions: Foot X-Ray 08/04/19 00:13 IMPRESSION: Soft tissue ulcer without definite osteomyelitis. Foot X-Ray 08/04/19 06:46 IMPRESSION: 2 cm soft tissue ulcer over the right 1st metatarsal stump. Diffuse forefoot soft tissue swelling. No new aggressive bony changes to suggest osteomyelitis Stroke Is this a Stroke Patient?: No Acute Heart Failure - Is this a Heart Failure Patient?: No
== END 2019-08-07 18:58 | disposition home or self-care (01) | DRG 264 ==
LOC: ER 21:25 → EH 08-04 02:44 → 4W 08-04 03:59
PROVIDERS: ADMIT Emergency Medicine; ATTEND Emergency Medicine
PROC: 0JBR0ZZ Excision of Left Foot Subcutaneous Tissue and Fascia, Open Approach (ICD-10-PCS; principal; 2019-08-04 10:45)
DX: E11.52 Type 2 diabetes mellitus with diabetic peripheral angiopathy with gangrene (principal); M86.9 Osteomyelitis, unspecified; I96 Gangrene, not elsewhere classified; R78.81 Bacteremia; E11.610 Type 2 diabetes mellitus with diabetic neuropathic arthropathy; E86.0 Dehydration; N28.9 Disorder of kidney and ureter, unspecified; I10 Essential (primary) hypertension; E66.9 Obesity, unspecified; B95.62 Methicillin resistant Staphylococcus aureus infection as the cause of diseases classified elsewhere; B95.2 Enterococcus as the cause of diseases classified elsewhere; B96.1 Klebsiella pneumoniae [K. pneumoniae] as the cause of diseases classified elsewhere; L97.523 Non-pressure chronic ulcer of other part of left foot with necrosis of muscle; E11.69 Type 2 diabetes mellitus with other specified complication; Z79.899 Other long term (current) drug therapy; Z79.4 Long term (current) use of insulin; Z89.421 Acquired absence of other right toe(s); Z89.411 Acquired absence of right great toe; Z88.3 Allergy status to other anti-infective agents; Z91.040 Latex allergy status; Z91.018 Allergy to other foods; Z91.19 Patient's noncompliance with other medical treatment and regimen
CPT/HCPCS: 00400; 36415; 80048; 80053; 80202; 82565; 82803; 82962; 83036; 83605; 83690; 83735; 85025; 85027; 85610; 87040; 87070; 87075; 87077; 87186; 87205; 93005; 93010; 96365; 96366; 96367; 96375; 99285; J0692; J1644; J1815; J2250; J2405; J2550; J2704; J2765; J3010; J3370; J3490; J7030; J7060

== ENCOUNTER 2019-08-20 01:08 | Emergency (ER) | payer SELFPAY ==
--- NOTE | 2019-08-20 01:30 | ER Document Report ---
ED Blood Sugar Problem <RAMÓN GUAN IV - Last Filed: 08/20/19 04:57> - General Mode of Arrival: Medic Information source: Patient TRAVEL OUTSIDE OF THE [place] IN LAST 30 DAYS: No <JESSIE LINARES - Last Filed: 08/22/19 04:22> - General Chief Complaint: High Blood Sugar Stated Complaint: FOOT PAIN/BLOOD SUGAR ISSUE Time Seen by Provider: 08/20/19 01:16 Primary Care Provider: MANUELITO ENGEL MD [HONORARY] - Follow up as needed Notes: 28-year-old man presents to the emergency department with a complaint of elevated blood sugar and pain involving his right foot. He has chronic diabetic ulcers on the right foot which were recently debrided. He has changed the dressing and noted that he is having some pain in the lateral aspect of the foot right below the fifth toe. EMS reported that his blood sugar was 393. The patient notes that he took 15 units of insulin prior to calling EMS. (JESSIE LINARES) - Related Data Allergies/Adverse Reactions: banana Allergy (Verified 08/20/19 03:46) latex Allergy (Verified 08/20/19 03:46) nickel Allergy (Verified 08/20/19 03:46) oritavancin [From Orbactiv] Allergy (Verified 08/20/19 03:46) tomato Allergy (Verified 08/20/19 03:46) Past Medical History - Social History Smoking Status: Unknown if Ever Smoked Family History: Reviewed & Not Pertinent - Past Medical History Cardiac Medical History: Reports: Hx Hypertension Denies: Hx Coronary Artery Disease, Hx Hypercholesterolemia Pulmonary Medical History: Denies: Hx Asthma, Hx COPD Neurological Medical History: Denies: Hx Seizures Endocrine Medical History: Reports: Hx Diabetes Mellitus Type 1, Hx Diabetes Mellitus Type 2. Denies: Hx Hyperthyroidism, Hx Hypothyroidism GI Medical History: Denies: Hx Cirrhosis, Hx Crohn's Disease, Hx Gastroesophageal Reflux Disease, Hx Hepatitis, Hx Hiatal Hernia, Hx Ulcerative Colitis Musculoskeletal Medical History: Denies Hx Arthritis, Denies Hx Gout Skin Medical History: Denies Hx Eczema, Denies Hx Psoriasis Psychiatric Medical History: Denies: Hx Depression Infectious Medical History: Reports: Hx MRSA. Denies: Hx Hepatitis Past Surgical History: Reports: Hx Orthopedic Surgery - Excision of 3 toes on the right foot - Immunizations Immunizations up to date: Yes Hx Diphtheria, Pertussis, Tetanus Vaccination: Yes <JESSIE LINARES - Last Filed: 08/22/19 04:22> Review of Systems <JESSIE LINARES - Last Filed: 08/22/19 04:22> - Review of Systems Notes: Constitutional: Negative for fever. HENT: Negative for sore throat. Eyes: Negative for visual changes. Cardiovascular: Negative for chest pain. Respiratory: Negative for shortness of breath. Gastrointestinal: Negative for abdominal pain, vomiting or diarrhea. Genitourinary: Negative for dysuria. Musculoskeletal: + Left foot, right foot diabetic ulcers. Skin: Negative for rash. Neurological: Negative for headaches, weakness or numbness. 10 point ROS negative except as marked above and in HPI. (JESSIE LINARES) Physical Exam <JESSIE LINARES - Last Filed: 08/22/19 04:22> - Vital signs Vitals: Temp Pulse Resp BP Pulse Ox 97.4 F 113 H 16 130/94 H 100 08/20/19 01:08 08/20/19 01:08 08/20/19 01:08 08/20/19 01:08 08/20/19 01:08 - Notes Notes: PHYSICAL EXAMINATION: Physical Exam: General: Pleasant and responsive 28-year-old male in no acute distress HEENT: NC/AT, pupils equal round and reactive to light, MM moist,nares clear, Neck: supple, no adenopathy, no masses. Lungs: clear, no wheezing, no rales no rhonchi CVS: Tachycardic rate and rhythm no murmur gallop or rub Abdomen: Soft active nontender, no masses, no hepatosplenomegaly Ext: Left foot with 2 plantar surface ulcers distal aspect with a 3 cm medial ulcer with pink granulation tissue and no drainage noted, a lateral plantar surface smaller approximate 2 cm circular ulcer near the base of the fifth toe with no active drainage and pink granulation tissue in place. Neuro: Alert and responsive, moving all 4 extremities on command, cranial nerves intact. Skin: Intact no open lesions, no rash PSYCH: Normal mood, normal affect. (JESSIE LINARES) Course - Laboratory Result Diagrams: 08/20/19 01:28 08/20/19 01:28 <RAMÓN GUAN IV - Last Filed: 08/20/19 04:57> - Laboratory Result Diagrams: 08/20/19 01:28 08/20/19 01:28 <JESSIE LINARES - Last Filed: 08/22/19 04:22> - Re-evaluation Re-evalutation: 08/20/19 04:57 accucheck is 251. Will d/c pt home (RAMÓN UGAN IV) 08/20/19 02:46 28-year-old diabetic presented to the emergency department with elevated blood sugar. He is given proxy 500 cc of normal saline and given a history of having taken 15 units of insulin at home we are observing closely, a repeat blood sugar at 0240 is 359. I discussed the patient with Dinah Chin, he will be assuming the care of this patient. We will give 5 units of regular insulin subcu and monitor the glucose trend. If his blood sugar is less than 300 patient will be discharged home to continue his management as an outpatient.. (JESSIE LINARES) - Vital Signs Vital signs: Temp Pulse Resp BP Pulse Ox 97.1 F 113 H 12 131/97 H 100 08/20/19 05:00 08/20/19 01:08 08/20/19 05:00 08/20/19 05:00 08/20/19 05:00 - Laboratory Laboratory results interpreted by me: 08/20/19 08/20/19 08/20/19 01:22 01:28 01:28 WBC 11.5 H Hgb 13.1 L Glucose 351 H POC Glucose 352 H Total Protein 8.7 H Urine Glucose (UA) 08/20/19 08/20/19 08/20/19 02:09 02:38 04:02 WBC Hgb Glucose POC Glucose 359 H 335 H Total Protein Urine Glucose (UA) >=500 H 08/20/19 08/20/19 04:24 04:55 WBC Hgb Glucose POC Glucose 318 H 251 H Total Protein Urine Glucose (UA) Discharge <RAMÓN GUAN IV - Last Filed: 08/20/19 04:57> <JESSIE LINARES - Last Filed: 08/22/19 04:22> - Discharge Clinical Impression: Hyperglycemia Condition: Good Disposition: HOME, SELF-CARE Additional Instructions: Return to the Emergency Department without delay if any worse. HOME CARE INSTRUCTIONS & INFORMATION: Thank you for choosing us for your medical needs. We hope you're satisfied with the care you received. After you leave, you must properly care for your problem and, at the same time, observe its progress. Any condition can change. Some illnesses can change rapidly over hours or days. If your condition worsens, return to the Emergency Department or see your physician promptly. ABOUT YOUR X-RAYS AND EKG'S: If you had an EKG or X-rays taken, they have been read by the Emergency Physician. The X-rays and EKG's will also be read by a Radiologist or [employer] [place] App[employer] within 24 hours. If discrepancies are noted, you will be notified by telephone. Please be certain the ED has a correct telephone number & address where you can be reached. Also, realize that some fractures or abnormalities do not show up on initial X-rays. If your symptoms continue, see your physician. ABOUT YOUR LABORATORY TEST: If you had laboratory tests, the results have been reviewed by the Emergency Physician. Some test results (for example cultures) may not be available for several days. You will be contacted if any test result shows you need additional treatment. Please be certain the ED has a correct telephone number and address where you can be reached. ABOUT YOUR MEDICATIONS: You will receive instructions on how to take your medicine on the prescription label you receive. Additional information may be provided by the Pharmacy. If you have questions afterwards, call the ED for clarification or further instructions. Some prescribed medications may cause drowsiness. Do not perform tasks such as driving a car or operating machinery without consulting your Pharmacist. If you feel you need a refill of pain medication, your condition will need re-evaluation. Please do not call for a refill of any medication. ABOUT YOUR SIGNATURE: Signature of this document acknowledges to followin. Understanding that you received emergency treatment and that you may be released before al medical problems are known or treated. Please be certain the ED has a correct phone number & address where you can be reached. 2. Acknowledgement that you will arrange for follow-up care as recommended. 3. Authorization for the Emergency Physician to provide information to your follow-up Physician in order to maximize your care. AT ANY TIME, IF YOUR SYMPTOMS CHANGE SIGNIFICANTLY OR WORSEN OR YOU DEVELOP NEW SYMPTOMS, RETURN TO THE EMERGENCY DEPARTMENT IMMEDIATELY FOR RE-EVALUATION. OUR GOAL IS TO PROVIDE EXCELLENT MEDICAL CARE! WE HOPE THAT WE HAVE MET YOUR EXPECTATIONS DURING YOUR EMERGENCY DEPARTMENT VISIT AND THAT YOU FEEL YOU HAVE RECEIVED EXCELLENT CARE! Referrals: MANUELITO ENGEL MD [HONORARY] - Follow up as needed
[2019-08-20] MEDS ORDERED: NORMAL SALINE 1000 ML 1,000 ML IV ONE (01:33)
[2019-08-20 01:47] LABS: ABSOLUTE BASOPHILS # (AUTO) 0.1 10^3/uL (0.0-0.2); ABSOLUTE EOSINOPHILS # (AUTO) 0.2 10^3/uL (0.0-0.6); ABSOLUTE LYMPHOCYTES (AUTO) 3.4 10^3/uL (0.5-4.7); ABSOLUTE MONOCYTES (AUTO) 0.8 10^3/uL (0.1-1.4); ABSOLUTE NEUT (AUTO) 7.1 10^3/uL (1.7-8.2); BASOPHILS % (AUTO) 0.6 % (0-2); EOSINOPHILS % (AUTO) 1.8 % (0-6); HEMATOCRIT 38.8 % (37.9-51.0); HEMOGLOBIN 13.1 g/dL (13.5-17.0); LYMPHOCYTES % (AUTO) 29.5 % (13-45); MEAN CORPUSCULAR HEMOGLOBIN 28.6 pg (27.0-33.4); MEAN CORPUSCULAR HGB CONC 33.8 g/dL (32.0-36.0); MEAN CORPUSCULAR VOLUME 85 fl (80-97); MONOCYTES % (AUTO) 6.7 % (3-13); PLATELET COUNT 424 10^3/uL (150-450); RED BLOOD COUNT 4.59 10^6/uL (4.35-5.55); RED CELL DISTRIBUTION WIDTH 12.8 % (11.5-14.0); SEGMENTED NEUTROPHILS % (AUTO) 61.4 % (42-78); TOTAL CELLS COUNTED % (AUTO) 100 %; WHITE BLOOD COUNT 11.5 10^3/uL (4.0-10.5)
[2019-08-20 02:02] LABS: ALBUMIN 4.7 g/dL (3.5-5.0); ALKALINE PHOSPHATASE 96 U/L (38-126); ANION GAP 15 (5-19); ASPARTATE AMINO TRANSFERASE 17 U/L (17-59); BILIRUBIN,DIRECT 0.4 mg/dL (0.0-0.4); BILIRUBIN,TOTAL 0.4 mg/dL (0.2-1.3); BLOOD UREA NITROGEN 20 mg/dL (7-20); CALCIUM 9.8 mg/dL (8.4-10.2); CARBON DIOXIDE 26 mmol/L (22-30); CHLORIDE 99 mmol/L (98-107); GLUCOSE 351 mg/dL (75-110); POTASSIUM 3.9 mmol/L (3.6-5.0); TOTAL PROTEIN 8.7 g/dL (6.3-8.2)
[2019-08-20 02:30] LABS: APPEARANCE,URINE CLEAR; BILIRUBIN,URINE NEGATIVE (NEGATIVE); COLOR,URINE YELLOW; GLUCOSE, URINE >=500 mg/dL (NEGATIVE); KETONES,URINE NEGATIVE (NEGATIVE); LEUKOCYTE ESTERASE,URINE NEGATIVE (NEGATIVE); NITRITE,URINE NEGATIVE (NEGATIVE); PROTEIN,URINE NEGATIVE (NEGATIVE); URINE SPECIFIC GRAVITY 1.027; UROBILINOGEN,URINE NEGATIVE mg/dL (<2.0)
[2019-08-20] MEDS ORDERED: INSULIN NPH (ISOPHANE), HUMAN 100 UNIT/ML 3 ML SUBCUT ONE (02:49)
[2019-08-20] MEDS ORDERED: INSULIN REG, HUMAN 100 UNIT/ML 3 ML VIAL (PYX) IV ONE (04:13)
[2019-08-20 05:05] VITALS: BP 131/97
== END 2019-08-20 05:25 | disposition home or self-care (01) ==
LOC: ER 01:08
DX: E11.65 Type 2 diabetes mellitus with hyperglycemia (principal); M79.671 Pain in right foot; E11.621 Type 2 diabetes mellitus with foot ulcer; L97.529 Non-pressure chronic ulcer of other part of left foot with unspecified severity; Z79.4 Long term (current) use of insulin; I10 Essential (primary) hypertension; Z86.14 Personal history of Methicillin resistant Staphylococcus aureus infection
CPT/HCPCS: 99284; 96360; 36415; 82962; 85025; 80053; 81001; J1815 ×2; J7030

== ENCOUNTER 2019-09-07 01:15 | Emergency (ER) | payer SELFPAY ==
--- NOTE | 2019-09-07 07:05 | ER Document Report ---
Entered by BILL GARIBAY SCRIBE 09/07/19 0639 Acting as scribe for:FARAZ CRUZ MD ED General - General Chief Complaint: Foot Pain Stated Complaint: LEFT FOOT PAIN Time Seen by Provider: 09/07/19 06:23 Information source: Patient Notes: 28-year-old male presents to the emergency department with diabetic ulcers on his feet with most concern of right foot. Patient states that he "wasn't feeling good" and came to the emergency department due to the ulcers. Patient says that he his most concerned with his 5th toe on right foot. Patient says that he is concerned with associated redness, pain and drainage on both feet. Patient has been wrapping wound. Patient reports debridement of right toes about a month prior to arrival. Patient reports no PCP in the area because he is visiting family with plans to return to [place] soon. Patient has medications for hypertension and diabetes. Patient reports taking his medication regularly. TRAVEL OUTSIDE OF THE [place] IN LAST 30 DAYS: No - Related Data Allergies/Adverse Reactions: banana Allergy (Verified 08/20/19 03:46) latex Allergy (Verified 08/20/19 03:46) nickel Allergy (Verified 08/20/19 03:46) oritavancin [From Orbactiv] Allergy (Verified 08/20/19 03:46) tomato Allergy (Verified 08/20/19 03:46) Home Medications: lisinopril. gabapentin. Humalog. levimir Past Medical History - General Information source: Patient - Social History Smoking Status: Never Smoker Cigarette use (# per day): No Chew tobacco use (# tins/day): No Frequency of alcohol use: None Drug Abuse: None Family History: Reviewed & Not Pertinent Patient has suicidal ideation: No Patient has homicidal ideation: No - Past Medical History Cardiac Medical History: Reports: Hx Hypertension Pulmonary Medical History: Reports: Hx Asthma Endocrine Medical History: Reports: Hx Diabetes Mellitus Type 1 Infectious Medical History: Reports: Hx MRSA Past Surgical History: Reports: Hx Orthopedic Surgery - Excision of 3 toes on the right foot, Hx Tonsillectomy - Immunizations Immunizations up to date: Yes Hx Diphtheria, Pertussis, Tetanus Vaccination: Yes Review of Systems - Review of Systems Constitutional: No symptoms reported EENT: No symptoms reported Cardiovascular: No symptoms reported Respiratory: No symptoms reported Gastrointestinal: No symptoms reported Genitourinary: No symptoms reported Male Genitourinary: No symptoms reported Musculoskeletal: See HPI, Other - Pain in feet Skin: See HPI, Change in color, Other - Diabetic ulcers Hematologic/Lymphatic: No symptoms reported Neurological/Psychological: No symptoms reported -: Yes All other systems reviewed and negative Physical Exam - Vital signs Vitals: Temp Pulse Resp BP Pulse Ox 98.2 F 87 20 138/92 H 99 09/07/19 01:50 09/07/19 01:50 09/07/19 01:50 09/07/19 01:50 09/07/19 01:50 - Notes Notes: Physical Exam: General: Alert, appears well. HEENT: Normocephalic. Atraumatic. PERRL. Extraocular movements intact. Oropha rynx clear. Neck: Supple. Non-tender. Respiratory: No respiratory distress. Clear and equal breath sounds bilaterally. Cardiovascular: Regular rate and rhythm. Abdominal: Normal Inspection. Non-tender. No distension. Normal Bowel Sounds. Back: No gross abnormalities. Extremities: Moves all four extremities. Upper extremities: Normal inspection. Normal ROM. Lower extremities: No edema. Normal ROM. Diabetic ulcer on the 1st metatarsal head plantar surface with crusting tissue, drainage and foul odor. Patient has previously had 1st, 2nd and 3rd toes with metatarsal heads removed. Neurological: Normal cognition. AAOx4. Normal speech. Psychological: Normal affect. Normal Mood. Skin: Warm. Dry. Normal color. Course - Re-evaluation Re-evalutation: 09/07/19 12:40 After soaking both feet in warm soapy water and cleaning the toes, the diabetic ulcerations have some hard crusting-like tissue along the edges that would benefit from using bacitracin ointment to soften that tissue. There is no necrosis needing debridement at this time. I discussed following up with the general surgeons at [facility] early next week. They can evaluate the wounds to see if wound care clinic might be helpful to speed up healing of the diabetic ulcers. - Vital Signs Vital signs: Temp Pulse Resp BP Pulse Ox 97.5 F 83 18 131/91 H 97 09/07/19 10:15 09/07/19 10:15 09/07/19 10:15 09/07/19 10:15 09/07/19 10:15 - Laboratory Result Diagrams: 09/07/19 07:38 09/07/19 07:54 Laboratory results interpreted by me: 09/07/19 09/07/19 09/07/19 07:38 07:54 08:00 Potassium 3.2 L Glucose 213 H Hemoglobin A1c % 10.3 H Total Protein 8.5 H Urine Protein 100 H Urine Glucose (UA) >=500 H - Diagnostic Test Radiology reviewed: Image reviewed, Reports reviewed - X-ray of the left foot and toes does not show bony abnormality of the fifth toe. Discharge - Discharge Clinical Impression: Cellulitis of fifth toe of left foot Diabetic ulcer of left foot Qualifiers: Diabetic foot ulcer location: other Diabetes mellitus type: type 1 Non-pressure ulcer stage: with muscle involvement without evidence of necrosis Qualified Code (s): E10.621 - Type 1 diabetes mellitus with foot ulcer; L97.525 - Non-pressure chronic ulcer of other part of left foot with muscle involvement without evidence of necrosis Diabetic ulcer of right foot Qualifiers: Diabetic foot ulcer location: midfoot Diabetes mellitus type: type 1 Non- pressure ulcer stage: with muscle involvement without evidence of necrosis Qualified Code(s): E10.621 - Type 1 diabetes mellitus with foot ulcer; L97.415 - Non-pressure chronic ulcer of right heel and midfoot with muscle involvement without evidence of necrosis Condition: Stable Disposition: HOME, SELF-CARE Additional Instructions: Cellulitis of Left 5th Toe: You have an infection of your skin and underlying soft tissues called cellulitis. This is due to bacteria, which can enter through any break in the skin. Untreated, cellulitis will usually worsen. Antibiotics are required. Usually, warm packs or warm soaks, and elevation of the infected area are recommended. You should start getting better within 24 to 36 hours. Most infections respond quickly to the right medication. Follow-up care is important, however, to check for abscess (boil) formation, unsuspected foreign body, or resistant infection. If you develop fever, chills, or if the area of infection is becoming rapidly more swollen or painful, call the doctor at once. Take the antibiotics as prescribed. Use bacitracin ointment on the diabetic ulcers to prevent the edges from becoming hard and crusted. Elevate your feet. Follow-up with [facility] early next week to evaluate your diabetic ulcers for referral to the wound care clinic. Call the clinic today to schedule an appointment. RETURN TO THE EMERGENCY ROOM IF ANY NEW OR WORSENING SYMPTOMS. Prescriptions: Sulfamethoxazole/Trimethoprim [Bactrim Ds Tablet] 2 tab PO BID #40 tablet Referrals: [facility] [Provider Group] - Follow up in 3-5 days (Call today to schedule an appointment.) I personally performed the services described in the documentation, reviewed and edited the documentation which was dictated to the scribe in my presence, and it accurately records my words and actions.
--- NOTE | 2019-09-07 07:50 | RADIOLOGY REPORT (SQ) ---
Left foot three view on 09/07/2019 at 7:08 AM CLINICAL INDICATION: Diabetic foot ulcer, infected fifth toe COMPARISON: 08/04/2019 FINDINGS: Plantar foot ulcer is again noted on lateral view in the distal foot. There is no radiopaque foreign body. There are no fractures. Visualized joints are well aligned. No definite plain radiographic evidence of osteomyelitis is noted. IMPRESSION: No acute bony abnormality.
[2019-09-07 07:53] LABS: ABSOLUTE EOSINOPHILS # (AUTO) 0.2 10^3/uL (0.0-0.6); ABSOLUTE LYMPHOCYTES (AUTO) 3.2 10^3/uL (0.5-4.7); ABSOLUTE MONOCYTES (AUTO) 0.8 10^3/uL (0.1-1.4); ABSOLUTE NEUT (AUTO) 4.5 10^3/uL (1.7-8.2); BASOPHILS % (AUTO) 0.5 % (0-2); EOSINOPHILS % (AUTO) 1.8 % (0-6); HEMATOCRIT 40.4 % (37.9-51.0); HEMOGLOBIN 13.5 g/dL (13.5-17.0); LYMPHOCYTES % (AUTO) 37.2 % (13-45); MEAN CORPUSCULAR HEMOGLOBIN 28.4 pg (27.0-33.4); MEAN CORPUSCULAR HGB CONC 33.5 g/dL (32.0-36.0); MEAN CORPUSCULAR VOLUME 85 fl (80-97); PLATELET COUNT 254 10^3/uL (150-450); RED BLOOD COUNT 4.77 10^6/uL (4.35-5.55); RED CELL DISTRIBUTION WIDTH 13.2 % (11.5-14.0); SEGMENTED NEUTROPHILS % (AUTO) 51.5 % (42-78); TOTAL CELLS COUNTED % (AUTO) 100 %; WHITE BLOOD COUNT 8.7 10^3/uL (4.0-10.5)
[2019-09-07 08:25] LABS: APPEARANCE,URINE SLIGHTLY-CLOUDY; BILIRUBIN,URINE NEGATIVE (NEGATIVE); COLOR,URINE YELLOW; GLUCOSE, URINE >=500 mg/dL (NEGATIVE); KETONES,URINE NEGATIVE (NEGATIVE); LEUKOCYTE ESTERASE,URINE NEGATIVE (NEGATIVE); NITRITE,URINE NEGATIVE (NEGATIVE); PROTEIN,URINE 100 mg/dL (NEGATIVE); URINE SPECIFIC GRAVITY 1.027; UROBILINOGEN,URINE NEGATIVE mg/dL (<2.0)
[2019-09-07 08:37] LABS: ALBUMIN 4.7 g/dL (3.5-5.0); ALKALINE PHOSPHATASE 101 U/L (38-126); ANION GAP 14 (5-19); ASPARTATE AMINO TRANSFERASE 17 U/L (17-59); BILIRUBIN,DIRECT 0.3 mg/dL (0.0-0.4); BILIRUBIN,TOTAL 0.6 mg/dL (0.2-1.3); BLOOD UREA NITROGEN 18 mg/dL (7-20); CALCIUM 9.8 mg/dL (8.4-10.2); CARBON DIOXIDE 28 mmol/L (22-30); CHLORIDE 101 mmol/L (98-107); GLUCOSE 213 mg/dL (75-110); POTASSIUM 3.2 mmol/L (3.6-5.0); TOTAL PROTEIN 8.5 g/dL (6.3-8.2)
[2019-09-07] MEDS ORDERED: POTASSIUM CHLORIDE 10 MEQ TABLET.ER PO ONE (09:09)
[2019-09-07] MEDS ORDERED: SULFAMETHOXAZOLE/TRIMETHOPRIM 800-160 MG TABLET PO ONE (09:09)
[2019-09-07 13:04] VITALS: BP 136/92
== END 2019-09-07 13:04 | disposition home or self-care (01) ==
LOC: ER 01:15
DX: L03.032 Cellulitis of left toe (principal); M79.672 Pain in left foot; E10.621 Type 1 diabetes mellitus with foot ulcer; L97.525 Non-pressure chronic ulcer of other part of left foot with muscle involvement without evidence of necrosis; L97.415 Non-pressure chronic ulcer of right heel and midfoot with muscle involvement without evidence of necrosis; I10 Essential (primary) hypertension; Z91.040 Latex allergy status; Z86.14 Personal history of Methicillin resistant Staphylococcus aureus infection
CPT/HCPCS: 36415; 80053; 81001; 83036; 85025; 87040; 99284